=== PATIENT | male | born 1955 | race Caucasian/White ===

== ENCOUNTER 2017-01-31 20:52 | Emergency (ER) | payer OTHER ==
[~2017-01-31] VITALS: Ht 172.7 cm; Wt 99.3 kg
[~2017-01-31 20:52] MED LIST: BIOF500T PO; CLAR500T34 PO; COEN30CA3 PO; DICL-201 PO; INOS500T PO; LISI40TA PO; LORA-741 PO; MAGN1TAB21 PO; MELA1TAB3 PO; MELO15TA3 PO; METF-384 PO; METO-596 PO; OMEGCAP2 PO; PROM12.56 PO; [UNRECOGNIZED DRUG - CODE] PO; [UNRECOGNIZED DRUG - CODE] PO; [UNRECOGNIZED DRUG - OTHER] NAE; [UNRECOGNIZED DRUG - OTHER] PO; [UNRECOGNIZED DRUG - OTHER] PO; [UNRECOGNIZED DRUG - OTHER] PO
[2017-01-31 20:56] VITALS: TEMP 36.6; Ht 172.7 cm; Wt 99.3 kg
[2017-01-31] MEDS ORDERED: OPTIRAY 320 IV PRN (21:45)
[2017-01-31] MEDS ORDERED: CMP5 PO (21:46)
[2017-01-31] MEDS ORDERED: [UNRECOGNIZED DRUG - CODE] PO (21:46)
[2017-01-31] MEDS ORDERED: SULF800T23 PO (21:46)
[2017-01-31] MEDS ORDERED: GLCSR/500 PO (21:46)
[2017-01-31] MEDS ORDERED: OMEG10007 PO ×2 (21:46)
[2017-01-31] MEDS ORDERED: ASPI81TA28 PO (21:46)
[2017-01-31] MEDS ORDERED: PROM12.57 PO (21:46)
[2017-01-31] MEDS ORDERED: NIAC500T11 PO (21:46)
[2017-01-31] MEDS ORDERED: CYAN500T13 PO (21:46)
[2017-01-31] MEDS ORDERED: LISI40TA PO (21:46)
[2017-01-31] MEDS ORDERED: TRC145 PO (21:46)
[2017-01-31 22:15] LABS: ISTAT CREATININE 1.4 mg/dl (0.6-1.3); ISTAT HEMOGLOBIN 14.6 g/dl (14.0-18.0); ISTAT IONIZED CALCIUM 1.28 mmol/l (1.12-1.32)
--- NOTE | 2017-01-31 22:28 | DIAGNOSTIC IMAGING REPORT ---
CT OF THE CHEST WITH IV CONTRAST CLINICAL HISTORY: Thoracic pain status post trauma COMPARISON STUDY: No previous studies for comparison. TECHNIQUE: Following the IV administration of 116 mL of Optiray-320, CT of the thorax was performed from the thoracic inlet to the lung bases. Images are reviewed in the axial, sagittal, and coronal planes. IV contrast was administered without complication. CT DOSE: FINDINGS: Thyroid: Imaged portions of the thyroid gland are normal in appearance. Thoracic aorta: The thoracic aorta is normal in course and caliber, noting standard 3-vessel arch anatomy. No aneurysm or dissection is seen. Pulmonary vasculature: The pulmonary trunk is normal in caliber. There are no central filling defects identified to suggest pulmonary embolus. Note that this examination was not protocoled for the evaluation of pulmonary emboli. HEART: The heart is normal in size and configuration, without pericardial effusion. Lungs and pleural spaces: No pneumothorax is visualized. There is no evidence of pulmonary contusion. No pleural effusions are visualized. There is no focal pulmonary consolidation. Mediastinum: There is no evidence of pathologic adenopathy. No mediastinal hematoma is visualized. Shabana: There is no evidence of pathologic adenopathy Axilla: Clear. Upper abdomen: There is hepatic steatosis. There is cholelithiasis. Skeletal structures: There are no lytic or blastic osseous lesions. No fractures are visualized. IMPRESSION: 1. No evidence of acute intrathoracic injury. 2. Hepatic steatosis 3. Cholelithiasis Electronically signed by: Tony Jurado M.D. 01/31/2017 10:27 PM Dictated Date/Time: 01/31/2017 10:23 PM
--- NOTE | 2017-01-31 22:29 | DIAGNOSTIC IMAGING REPORT ---
CT THORACIC SPINE WITHOUT CT DOSE: 883.21 mGy.cm CLINICAL HISTORY: Thoracic spine pain status post trauma TECHNIQUE: Helical images were acquired in transverse plane. Coronal and sagittal reformatted images were acquired. COMPARISON STUDY: None. FINDINGS: No acute fractures or traumatic subluxations are visualized. There are mild multilevel degenerative changes. No paraspinal hematoma is visualized. There are no pleural effusions. There is no evidence of focal pulmonary consolidation. IMPRESSION: No fractures or subluxations identified. Electronically signed by: Tony Jurado M.D. 01/31/2017 10:28 PM Dictated Date/Time: 01/31/2017 10:27 PM
--- NOTE | 2017-01-31 22:41 | EMERGENCY ROOM VISIT NOTE ---
History First contact with patient: 21:25 Chief Complaint: RIB PAIN Stated Complaint: FELL- RT SIDE RIB PAIN History of Present Illness The patient is a 61 year old male who presents to the Emergency Room via private vehicle accompanied by with complaints of "fell, right side rib pain". The patient states that earlier today, he was disassembling a trailer for scrap, when he fell through the floor, and then off the side of the trailer. This occurred around 4 PM. He states as he was walking his right leg fell through the floor causing him to fall to the right off the side of the trailer striking the ground. He fell approximately 3 feet plus to hydrate his body. He developed a headache at the time, and notes pain in the right side of his ribs between his shoulder blades of his back as well. His tetanus is up-to- date. He denies any chest pain, shortness of breath, abdominal pain, loss of consciousness, striking his head. Review of Systems A complete 6-point Review of Systems was discussed with the patient, with pertinent positives and negatives listed in the History of Present Illness. All remaining Review of Systems questions can be considered negative unless otherwise specified. Past Medical/Surgical History Diabetes, high blood pressure, pneumonia, kidney stones, colonoscopy, Lyme disease Family History Diabetes, cancer, gallbladder disease, kidney disease or stones, seizures Social History Smoking Status: Never Smoker Social History: Patient lives at home with . Current/Historical Medications Scheduled Aspirin (Aspirin Ec), 81 MG PO QPM Bioflavonoid Products (Kathy-C), 1,000 MG PO BID Coenzyme Q10 (Ubidecarenone) (Co Q10), 1 CAP PO QAM Cyanocobalamin (Vitamin B12 500MCG), 500 MCG PO DAILY Fenofibrate (Fenofibrate), 145 MG PO DAILY Fish Oil ([place]-3), 1 CAP PO AMPM Lisinopril (Zestril), 40 MG PO DAILY Melatonin-Pyridoxine (Melatonin), 10 MG PO HS Metformin HCl (Metformin HCl ER), 1,000 MG PO BID Metoprolol Tartrate (Lopressor), 100 MG PO DAILY Niacin (Niacin), 500 MG PO AMPM Para-Aminobenzoic Acid (Paba) (Paba), 100 MG PO BID Policosanol (Policosanol), 10 MG PO BID Prochlorperazine Maleate (Prochlorperazine Maleate), 5 MG PO BID Promethazine (Phenergan ), 12.5 MG PO BID Sulfa/Trimethoprim (Bactrim Ds 800MG/160MG), 1 TAB PO BID Scheduled PRN Lorazepam (Ativan), 0.5 MG PO TID PRN for Anxiety Oxycodone Ir (Roxicodone Ir), 1-2 TAB PO Q4H PRN for Pain Allergies Coded Allergies: Amoxicillin (Unverified Allergy, Intermediate, DIFFICULTY BREATHING, ) Minocycline (Verified Allergy, Unknown, BLACKENED SKIN, 04/22/14) Penicillins (Verified Allergy, Unknown, Unknown, 01/31/17) Testosterone (Verified Adverse Reaction, Unknown, MUSCLE ACHES,GI UPSET, ) Physical Exam Vital Signs Date Time Temp Pulse Resp B/P (MAP) Pulse Ox O2 Delivery O2 Flow Rate FiO2 01/31/17 23:01 69 18 154/87 96 01/31/17 20:56 36.6 74 16 158/96 97 Room Air Physical Exam VITAL SIGNS - Vital signs and nursing notes were reviewed. Patient is afebrile , hypertensive 158/96, non-tachycardic and saturating well on room air 97%. GENERAL -61-year-old male appearing his stated age. Communicates well with provider and answers questions appropriately. SKIN - Gross examination of the entire body surface demonstrates no lacerations to the body surface. HEAD - Normocephalic, Atraumatic. No Hartley's Sign or Raccoon's Eyes. No depressed skull fractures palpable. EYES - PERRL with EOMI bilaterally. Without subconjunctival hemorrhage. Palpebral conjunctiva pink and moist with no injection. EARS - No deformities of external structures noted on gross examination bilaterally. No hemotympanum present. No tympanic perforation noted. Handle of malleus, umbo, cone of light, pars tensa/flaccid all easily visualized. NOSE - Midline and without cyanosis. No epistaxis or clear watery discharge noted. Septum midline without deviation. No septal hematoma noted. No overlying ecchymosis noted. MOUTH/OROPHARYNX - Without perioral cyanosis. Tongue midline with equal elevation of palate bilaterally. No blood noted in the oropharynx. No tonsillar hypertrophy, erythema, or exudates noted. No dental fractures noted. NECK - no tenderness to palpation over the cervical spinous processes. Bowel cervical paraspinal muscle tenderness noted. LUNGS - Chest wall symmetric without accessory muscle use, intercostals retractions, or central cyanosis. No flail chest or depressed fractures noted. No paradoxical chest wall movements noted. No tenderness to palpation across the anterior and posterior chest gonsales. Male tenderness with deep inspiration noted against the examiner's applied pressure to the lateral chest gonsales. Normal vesicular breath sounds CTA B/L. No wheezes, rales, or rhonchi appreciated. There is slight tenderness noted to outpatient overlying the right rib cage region laterally. CARDIAC - RRR with S1/S2. No murmur, rubs, or gallops appreciated. ABDOMEN - Abdominal contour and without pulsations or visible masses. BS normoactive all four quadrants. No rebound tenderness or guarding noted. Negative Runnells's or Glasgow Torres's Signs. No tenderness, palpable masses, hepatosplenomegaly, or ascites noted. EXTREMITIES - No gross deformities noted of the extremities. No tenderness to palpation of the extremities. +5/5 strength noted in UE/LE bilaterally. NEUROLOGIC - Cranial nerves II through XII grossly intact. Sensory intact to light touch throughout. PSYCH -Pt is very pleasant and interacts well with examiner. Medical Decision & Procedures ER Provider Diagnostic Interpretation: CT OF THE CHEST WITH IV CONTRAST CLINICAL HISTORY: Thoracic pain status post trauma COMPARISON STUDY: No previous studies for comparison. TECHNIQUE: Following the IV administration of 116 mL of Optiray-320, CT of the thorax was performed from the thoracic inlet to the lung bases. Images are reviewed in the axial, sagittal, and coronal planes. IV contrast was administered without complication. CT DOSE: FINDINGS: Thyroid: Imaged portions of the thyroid gland are normal in appearance. Thoracic aorta: The thoracic aorta is normal in course and caliber, noting standard 3-vessel arch anatomy. No aneurysm or dissection is seen. Pulmonary vasculature: The pulmonary trunk is normal in caliber. There are no central filling defects identified to suggest pulmonary embolus. Note that this examination was not protocoled for the evaluation of pulmonary emboli. HEART: The heart is normal in size and configuration, without pericardial effusion. Lungs and pleural spaces: No pneumothorax is visualized. There is no evidence of pulmonary contusion. No pleural effusions are visualized. There is no focal pulmonary consolidation. Mediastinum: There is no evidence of pathologic adenopathy. No mediastinal hematoma is visualized. Shabana: There is no evidence of pathologic adenopathy Axilla: Clear. Upper abdomen: There is hepatic steatosis. There is cholelithiasis. Skeletal structures: There are no lytic or blastic osseous lesions. No fractures are visualized. IMPRESSION: 1. No evidence of acute intrathoracic injury. 2. Hepatic steatosis 3. Cholelithiasis Electronically signed by: Tony Jurado M.D. 01/31/2017 10:27 PM Dictated Date/Time: 01/31/2017 10:[address] THORACIC SPINE WITHOUT CT DOSE: 883.21 mGy.cm CLINICAL HISTORY: Thoracic spine pain status post trauma TECHNIQUE: Helical images were acquired in transverse plane. Coronal and sagittal reformatted images were acquired. COMPARISON STUDY: None. FINDINGS: No acute fractures or traumatic subluxations are visualized. There are mild multilevel degenerative changes. No paraspinal hematoma is visualized. There are no pleural effusions. There is no evidence of focal pulmonary consolidation. IMPRESSION: No fractures or subluxations identified. Electronically signed by: Tony Jurado M.D. 01/31/2017 10:28 PM Dictated Date/Time: 01/31/2017 10:27 PM Laboratory Results Test 01/31/17 21:58 Bedside Hemoglobin 14.6 g/dl (14.0-18.0) Bedside Hematocrit 43 % (42-52) Bedside Sodium 140 mEq/L (135-144) Bedside Potassium 4.6 mEq/L (3.3-5.0) Bedside Chloride 106 mEq/L (101-112) Bedside Total CO2 23 mEq/l (24-31) Anion Gap 15.0 mmol/L (16-25) Bedside Blood Urea Nitrogen 25 mg/dl (7-18) Bedside Creatinine 1.4 mg/dl (0.6-1.3) Bedside Glucose (other) 202 mg/dl (70-99) Bedside Ionized Calcium (Sandra) 1.28 mmol/l (1.12-1.32) Medications Administered Medications (Trade) Dose Ordered Sig/Kavon Route Start Time Stop Time Status Last Admin Dose Admin Oxycodone HCl (Roxicodone Immediate Rel 5MG Home Pack) 1 homepack UD STAT PO 01/31/17 22:50 01/31/17 22:52 DC 01/31/17 22:57 1 HOMEPACK Medical Decision Patient was seen and evaluated as above. After obtaining a thorough history and physical examination IV access was initiated an i-STAT was ordered as well as the above imaging. CT scan of the chest was obtained after discussing benefits versus risks. There is concern secondary to mechanism of injury of acute intrathoracic injury. Results as above. No acute intrathoracic injury. Patient's i-STAT does reveal a hemoglobin of 14.6, however there is a BUN of 25 , creatinine of 1.4, and glucose of 202. patient is a follow-up regarding this elevated creatinine. I did call the CT scanner employees to verify he could have the CT scan of the chest with this creatinine. They stated that it would be okay. Patient this time appears stable for discharge. He was also evaluated by the attending. He was educated upon the importance of follow-up. He was educated upon worrisome symptoms which to return, had questions answered prior to discharge, and was discharged home in good condition. For his rib pain a short-term pain prescription will be provided. In evaluation treatment this patient the following differential diagnoses were entertained: Acute intrathoracic injury, fracture, among others. [place] Drug Monitoring Program Search Results: patient reviewed within database, no issues identified Impression Primary Impression: Fall Departure Information Dispostion Home / Self-Care Condition GOOD Prescriptions Oxycodone Ir (Roxicodone Ir) 5 Mg Tab 1-2 TAB PO Q4H Y for Pain, #15 TAB For Initial Treatment Prov: Je Martin PA-C 01/31/17 Referrals Sonal Joseph PA-C (PCP) Patient Instructions My [facility] Additional Instructions You have been treated in the Emergency Department for Back Pain and side pain following a fall. For pain control, you can use the following nwwl-zhu-ghlswqy medicines (if >12 yo): - Regular strength (325mg/tab) Tylenol (acetaminophen) 2 tabs every 4-6 hours as needed. Do not exceed 12 tablets in a 24 hour period. Avoid taking more than 3 grams (3000 mg) of Tylenol per day. This includes any other sources of acetaminophen you may take on a regular basis. - Regular strength (200 mg/tab) Advil (ibuprofen) 1-2 tabs every 4-6 hours as needed. Do not exceed a dose of 3200 mg per day. If this is an acute injury, ice can be applied to the area of pain for the first 3 days to help decrease pain and inflammation. After the first 3 days, a heating pad can be used over the area for continued soothing relief. You should schedule a follow-up appointment in 2-3 days with your Primary Care Provider for further evaluation and treatment of your back pain. Please call your family doctor to schedule follow up to identify your kidney function. It was found to be abnormal here today. Please also follow-up regarding today's CAT scan findings to include but not limited to the hepatic steatosis and cholelithiasis. You're blood sugar was also found to be elevated. Return to the Emergency Department if your current symptoms worsen despite treatment course outlined above, or if you develop any of the following symptoms : intractable pain despite aforementioned treatment course, loss of control of your bowel or bladder, numbness or tingling in your groin, or development of a fever. Please return to the emergency department with any new/concerning symptoms.
[2017-01-31] MEDS ORDERED: OXYCODONE IR HOME PACK PO STA (22:50)
[2017-01-31] MEDS ORDERED: OXYC1TAB3 PO (22:52)
--- NOTE | 2017-01-31 22:56 | EMERGENCY ROOM VISIT NOTE ---
ED Visit Note First contact with patient: 21:25 This Patient was discussed with the physician [employer], Je Martin PA-C. The pertinent historical and physical exam findings were confirmed. I agree with the studies ordered and with the interpretations of these studies. I agree with the disposition and care plan.
[2017-01-31 23:01] VITALS: BP 154/87; PULSE 69; O2SAT 96
== END 2017-01-31 23:03 | disposition home or self-care (01) ==
LOC: C.EDB 20:54 → C.EDD 23:03
DX: T14.90 Injury, unspecified (principal); R07.82 Intercostal pain; W17.89XA Other fall from one level to another, initial encounter; K80.20 Calculus of gallbladder without cholecystitis without obstruction; K76.0 Fatty (change of) liver, not elsewhere classified; E11.9 Type 2 diabetes mellitus without complications; Z79.899 Other long term (current) drug therapy

== ENCOUNTER 2020-08-11 16:02 | Inpatient (IN) ==
--- OUTSIDE RECORDS SUMMARY | 2020-08-11 16:05 | External Medical Summary | Continuity of Care Document ---
:1955 Author Name Jorje Mckay, Provider Address Unavailable Unavailable , Care Team Providers Name Role Phone Corina Markham Unavailable [email or web address] M.[email or web address]. 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 Refills: 0 Metoprolol Tartrate 100 MG Oral Tablet; TAKE 1 TABLET DAILY. Refills: 0 Promethazine HCl - 12.5 MG Oral Tablet; TAKE ONE HALF TABLET TWICE DAILY. Refills: 0 Fish Oil 1200 MG Oral Capsule; Take 1 capsule twice daily Refills: 0 Policosanol 10 MG Oral Capsule; TAKE 2 TABLETS IN THE MORNIN G DAILY. Refills: 0 Melatonin 10-10 MG Oral Tablet Extended Release; TAKE 1 TABLET Daily in the evening as needed for sleep. Refills: 0 Inositol 500 MG TABS; TAKE 1 TABLET DAILY DIRECTED. Refills: 0 Lisinopril 40 MG Oral Tablet; TAKE 1 TABLET DAILY DIRECTE D. Refills: 0 LORazepam 0.5 MG Oral Tablet; TAKE 1-2 TABLETs 3 TIMES DAILY NEEDED. Refills: 0 Kathy-C 1000-50 MG TABS; TAKE 1 TABLET DAILY DIRECTED. Refills: 0 Co-Enzyme Q-10 30 MG Oral Capsule; TAKE 1 CAPSULE TWICE EDINSON Y. Refills: 0 Lancets MISC; Use to test blood sugar 3-4 times Daily. Refills: 0 Atorvastatin Calcium 20 MG Oral Tablet; TAKE 1 TABLET DAILY AT BEDTIME. Woody Juarez Start: 18-Jun-2015 Quantity: 30 Refills: 11 OneTouch Ultra Blue STRP; Test 4 times daily Refills: 0 PABA 100 MG Oral Tablet; TAKE 2 TABLETS DAILY. Refills: 0 Magnesium Citrate TABS; TDD:225 mg Refills: 0 metFORMIN HCl ER 500 MG Oral Tablet Exte nded Release 24 Hour; take 2 tablets by mouth twice a day MARYURI Bailey Start: 15-May-2014 Quantity: 360 Refills: 3 Fenofibrate 145 MG Oral Tablet; take 1 tablet by mouth once daily Woody Juarez Start: 21-Aug-2014 Quantity: 90 Refills: 3 BD Pen Needle Rosemary U/F 32G X 4 MM; one per day Niyah Juarez Start: 22-Feb-2015 Quantity: 1 100 Miscellaneous Abelardo x Refills: 3 Aspirin 81 MG TABS; TAKE 1 TABLET DAILY. Woody Juarez Start: 20-Feb-2014 Quantity: 30 Refills: 0 Vitamin B-12 500 MCG Oral Tablet; TAKE 1 TABLET DAILY. Woody Lee cht Start: 12-Feb-2014 Quantity: 90 Refills: 3 Cialis 20 MG Oral Tablet; One tablet as directed Gisella Juarez Start: 14-Jan-2015 Quantity: 3 Refills: 0 Procedures Procedures not documented Immunizations Pneumococcal polysaccharide vaccine, 23 valent On: 2007 Influenza Comments:Declined Influenza Comments:declined Influenza Comments:given 05/27 Family History Mother Family history of diabetes mellitus (V18.0) (Z83.3) Status: Active Social History - Smoking Status Never smoked tobacco Plan of Treatment Planned Observations Planned Goals not documented Results No Known Results Results not documented
--- OUTSIDE RECORDS SUMMARY | 2020-08-11 16:06 | External Medical Summary | Continuity of Care Document ---
:1955 Author Name Jorje Mckay, Provider Address Unavailable Unavailable , Care Team Providers Name Role Phone Corina Markham Unavailable [email or web address]. 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 Refills: 0 Metoprolol Tartrate 100 MG Oral Tablet; TAKE 1 TABLET DAILY. Refills: 0 Magnesium Citrate TABS; TDD:225 mg Refills: 0 Promethazine HCl - 12.5 MG [...] TAKE 1 TABLET DAILY DIRECTED. Refills: 0 PABA 100 MG Oral Tablet; TAKE 2 TABLETS DAILY. Refills: 0 OneTouch Ultra Blue STRP; Test 4 times daily Refills: 0 Lisinopril 40 MG Oral Tablet; [...] blood sugar 3-4 times Daily. Refills: 0 Vitamin B-12 500 MCG Oral Tablet; TAKE 1 TABLET DAILY. Woody Lee cht Start: 12-Feb-2014 Quantity: 90 Refills: 3 Aspirin 81 MG TABS; TAKE 1 TABLET DAILY. Woody Juarez Start: 20-Feb-2014 Quantity: 30 Refills: 0 metFORMIN HCl ER 500 MG Oral Tablet Exte nded Release 24 Hour; take 2 tablets by mouth twice a day MARYURI Bailey Start: 15-May-2014 Quantity: 360 Refills: 3 Fenofibrate 145 MG Oral Tablet; take 1 tablet by mouth once daily Woody Juarez Start: 21-Aug-2014 Quantity: 90 Refills: 3 Cialis 20 MG Oral Tablet; One tablet as directed Gisella Juarez Start: 14-Jan-2015 Quantity: 3 Refills: 0 BD Pen Needle Rosemary U/F 32G X 4 MM; one per day Niyah Juarez Start: 22-Feb-2015 Quantity: 1 100 Miscellaneous Abelardo x Refills: 3 Atorvastatin Calcium 20 MG Oral Tablet; TAKE 1 TABLET DAILY AT BEDTIME. Woody Juarez SLennox Start: 18-Jun-2015 Quantity: 30 Refills: 11 Procedures Procedures not documented Immunizations Pneumococcal polysaccharide vaccine, 23 valent On: 2007 Influenza Comments:Declined Influenza Comments:declined Influenza Comments:given 05/27 Family History Mother Family history of diabetes mellitus (V18.0) (Z83.3) Status: Active Social History - Smoking Status Never smoked tobacco Plan of Treatment Planned Observations Planned Goals not documented Results No Known Results Results not documented
--- NOTE | 2020-08-11 16:27 | Emergency Department Note ---
History of Present Illness General Chief complaint: Hyperglycemia Stated complaint: HIGH SUGAR, INFECTION SOMEWHERE Time Seen by Provider: 08/11/20 16:13 Source: patient Mode of arrival: ambulatory Limitations: no limitations History of Present Illness Provider complaint: Weakness, low blood pressure This is a 64-year-old male who presents to the ED from the PCPs office. They did contact us to let him know that the patient was coming. The patient went there and was found to have a low blood pressure and tachycardia. The patient reports that he had a Whipple procedure performed for pancreatic cancer on Decem sneha 2. He states that his sugars have been running in the 3-400 range since discharge. He states that he has been feeling tired and weak. He states that he urinates about every 1/2 hour. He feels thirsty all the time. He states that they do have him on insulin. He reports a normal appetite. Denies any nausea, vomiting, diarrhea or abdominal pains. No fevers. No respiratory symptoms. Home Medications Medication Instructions Recorded Confirmed Type COENZYME Q10 (UBIDECARENONE) (CO 1 cap PO QAM #0 cap 04/22/14 History Q10) LORAZEPAM (ATIVAN) 0.5 mg PO TID PRN #0 tab 04/22/14 History MELATONIN-PYRIDOXINE (MELATONIN) 10 mg PO HS #0 04/22/14 History METOPROLOL TARTRATE (LOPRESSOR) 100 mg PO QAM #0 tab 04/22/14 History PARA-AMINOBENZOIC ACID (PABA) 100 mg PO QAM #0 04/22/14 History (PABA) ASPIRIN (ASPIRIN EC) 81 mg PO QPM #0 01/31/17 History Fish Oil ([place]-3) 1 cap PO QAM #0 cap 01/31/17 History Lisinopril (Zestril) 40 mg PO QAM #0 tab 01/31/17 History Metformin HCl (Metformin HCl ER) 1,000 mg PO BID #120 01/31/17 History POLICOSANOL 10 mg PO BID #0 01/31/17 History Sulfa/Trimethoprim (Bactrim Ds 1 tab PO BID #6 tab 01/31/17 History 800MG/160MG) Ascorbic Acid (Vitamin C) 1 tab PO BID #0 10/17/17 History Fenofibrate (Tricor) 160 mg PO QAM #0 tab 10/17/17 History OXYCODONE/ACETAMINOPHEN 5MG/325MG 1 tab PO Q4H PRN #18 tab 10/22/17 Rx (PERCOCET 5MG/325MG) PSEUDOEPHEDRINE-GUAIFENESIN 1 tab PO BID 10 Days #20 tab 10/22/17 History (MUCINEX D) Allergies Allergy/AdvReac Type Severity Reaction Status Date / Time amoxicillin Allergy Intermediate DIFFICULTY Verified 10/22/17 06:41 BREATHING minocycline Allergy Unknown BLACKENED Verified 10/22/17 05:35 SKIN Penicillins Allergy Unknown FEVER AND Verified 10/22/17 05:35 RASH testosterone AdvReac Unknown MUSCLE Verified 10/22/17 05:35 ACHES,GI UPSET Past Med/Surg History Social History Smoking Status: Never smoker Preferred Language: Dutch Feels Safe at Home: Yes Review of Systems A total of 10 systems reviewed and were otherwise negative Physical Exam Vital Signs Vital Signs - 24 hr 08/11/20 16:05 08/11/20 16:17 08/11/20 16:30 Temperature 36.0 C L Temperature Source Temporal Artery Scan Pulse Rate - Lying Pulse Rate - Standing Pulse Rate 95 H 98 H Pulse Rate from SpO2 Sensor Respiratory Rate 18 18 Respiratory Effort / Characteristics Non-Labored Spontaneous Respiratory Depth Normal Blood Pressure - Lying Blood Pressure- Standing Blood Pressure 81/57 L 124/73 Blood Pressure Mean 65 82 Blood Pressure Position Sitting Pulse Oximetry 100 97 Oxygen Delivery Method Room Air Room Air Sepsis Recent Fever Within 48 Hours No Sepsis New/Unexplained Change in Mental Status No Sepsis Action Taken by Nursing No Action Required 08/11/20 16:34 08/11/20 16:47 08/11/20 17:00 Temperature Temperature Source Pulse Rate - Lying 82 Pulse Rate - Standing 110 H Pulse Rate 98 H 92 H Pulse Rate from SpO2 Sensor 92 H Respiratory Rate 20 16 Respiratory Effort / Characteristics Respiratory Depth Blood Pressure - Lying 126/74 Blood Pressure- Standing 86/64 L Blood Pressure 129/76 Blood Pressure Mean 96 Blood Pressure Position Pulse Oximetry 98 Oxygen Delivery Method Sepsis Recent Fever Within 48 Hours Sepsis New/Unexplained Change in Mental Status Sepsis Action Taken by Nursing 08/11/20 17:30 08/11/20 18:10 08/11/20 18:30 Temperature Temperature Source Pulse Rate - Lying Pulse Rate - Standing Pulse Rate 97 H 92 H 88 Pulse Rate from SpO2 Sensor 98 H 93 H 88 Respiratory Rate 14 18 23 Respiratory Effort / Characteristics Respiratory Depth Blood Pressure - Lying Blood Pressure- Standing Blood Pressure 137/80 123/76 149/87 H Blood Pressure Mean 107 92 126 Blood Pressure Position Pulse Oximetry 99 98 99 Oxygen Delivery Method Sepsis Recent Fever Within 48 Hours Sepsis New/Unexplained Change in Mental Status Sepsis Action Taken by Nursing 08/11/20 19:12 08/11/20 19:13 08/11/20 19:30 Temperature Temperature Source Pulse Rate - Lying Pulse Rate - Standing Pulse Rate 89 86 Pulse Rate from SpO2 Sensor 88 86 89 Respiratory Rate 23 15 Respiratory Effort / Characteristics Respiratory Depth Blood Pressure - Lying Blood Pressure- Standing Blood Pressure 142/83 H 148/78 H Blood Pressure Mean 116 104 Blood Pressure Position Pulse Oximetry 98 97 98 Oxygen Delivery Method Sepsis Recent Fever Within 48 Hours Sepsis New/Unexplained Change in Mental Status Sepsis Action Taken by Nursing CONSTITUTIONAL/VITAL SIGNS: Reviewed / noted above. GENERAL: Non-toxic in appearance. INTEGUMENTARY: Warm, dry, and [place]. HEAD: Normocephalic. EYES: without scleral icterus or trauma. ENT/OROPHARYNX: clear and dry. LYMPHADENOPATHY/NECK: Is supple without lymphadenopathy or meningismus. RESPIRATORY: Lungs clear and equal. CARDIOVASCULAR: Regular rate and rhythm. GI/ABDOMEN: Soft and nontender. No organomegaly or pulsatile mass. No rebound or guarding. Normal bowel sounds. Surgical wound is healing well. No evidence of infection. EXTREMITIES: Warm and well perfused. BACK: No CVA tenderness. NEUROLOGICAL: Intact without focal deficits. PSYCHIATRIC: normal affect. MUSCULOSKELETAL: Normally developed with good muscle tone. TRIAGE NURSING DOCUMENTATION REVIEWED. Course Administered Medications Discontinued Medications Sodium Chloride (Nss 1000ml) 2,000 mls @ 999 mls/hr IV .Q2H1M DEIDRA Stop: 08/11/20 18:30 Last Admin: 08/11/20 16:56 Dose: 999 mls/hr Documented by: [id number] Cefepime HCl (Maxipime) 2,000 mg in 20 mls @ 5 mls/min IV NOW STA; Protocol Stop: 08/11/20 18:06 Last Admin: 08/11/20 18:38 Dose: 5 mls/min Documented by: [id number] Ioversol (Ioversol 100ml) 90 ml IV ONCE ONE Stop: 08/11/20 19:04 Last Admin: 08/11/20 19:03 Dose: 90 ml Documented by: [id number] Medical Decision Making Differential Diagnosis Differential includes acute coronary syndrome, myocardial infarction, CVA, TIA, anemia, infection, pneumonia, UTI, pyelonephritis, poor nutrition, dehydration, electrolyte disturbance,hypoglycemia. Medical Records Attestation: I reviewed the patient's medical records. Home Medications Current Medication List: was personally reviewed by me Laboratory Data Attestation: I reviewed the patient's lab results. Result diagrams: 08/11/20 16:25 08/11/20 16:25 Lab Results 08/11/20 08/11/20 08/11/20 Range/Units 16:25 16:25 16:25 WBC 16.17 H (4.8-10.8) K/uL RBC 4.91 (4.7-6.1) M/uL Hgb 13.0 L (14.0-18.0) g/dL Hct 40.4 L (42-52) % MCV 82.3 (80-100) fL MCH 26.5 (25-34) pg MCHC 32.2 (32-36) g/dL RDW Std Deviation 42.2 (36.4-46.3) fL RDW Coeff of Gregorio 14.0 (11.5-14.5) % Plt Count 423 H (130-400) K/uL MPV 10.4 (7.4-10.4) fL Immature Gran % (Auto) 0.4 % Neut % (Auto) 81.2 % Lymph % (Auto) 8.5 % [place] % (Auto) 9.5 % Eos % (Auto) 0.3 % Baso % (Auto) 0.1 % Neut # (Auto) 13.13 H (1.4-6.5) K/uL Lymph # (Auto) 1.38 (1.2-3.4) K/uL [place] # (Auto) 1.54 H (0.11-0.59) K/uL Eos # (Auto) 0.05 (0-0.5) K/uL Baso # (Auto) 0.01 (0-0.2) K/uL Immature Gran # (Auto) 0.06 H (0.00-0.02) K/uL PT 12.5 H (9.0-12.0) Seconds INR 1.2 H (0.9-1.1) VBG pH (7.36-7.41) VBG pCO2 (38-50) mmHg VBG pO2 mmHg VBG HCO3 mmol/L VBG O2 Saturation % VBG Base Excess mEq/L Barometric Pressure mm/Hg Sodium 132 L (136-145) mmol/L Potassium 3.5 (3.5-5.1) mmol/L Chloride 93 L (98-107) mmol/L Carbon Dioxide 30 (21-32) mmol/L Anion Gap 9.0 (3-11) BUN 25 H (7-18) mg/dl Creatinine 1.12 (0.6-1.4) mg/dl Est Cr Clr Drug Dosing 64.5 ml/min Est GFR ( Amer) 80.0 Est GFR (Non-Af Amer) 69.0 BUN/Creatinine Ratio 22.1 H (10-20) Glucose 326 H* (70-99) mg/dl Lactate (0.4-2.0) mmol/L Calcium 15.3 H* (8.5-10.1) mg/dl Magnesium 1.8 (1.8-2.4) mg/dl Total Bilirubin 0.4 (0.2-1) mg/dl AST 32 (15-37) U/L ALT 36 (12-78) U/L Alkaline Phosphatase 102 (45-117) U/L Total Creatine Kinase 46 (39-308) U/L Troponin I < 0.015 (0-0.045) ng/ml Total Protein 7.7 (6.4-8.2) gm/dl Albumin 3.3 L (3.4-5.0) gm/dl Globulin 4.4 H (2.5-4.0) gm/dl Albumin/Globulin Ratio 0.7 L (0.9-2) Beta-Hydroxybutyric Acd (0.2-2.81) mg/dl Urine Color Urine Appearance (Clear) Urine pH (4.5-7.5) Ur Specific [place] (1.000-1.030) Urine Protein (Negative) Urine Glucose (UA) (Negative) Urine Ketones (Negative) Urine Blood (Negative) Urine Nitrite (Negative) Urine Bilirubin (Negative) Urine Urobilinogen (Negative) Ur Leukocyte Esterase (Negative) Urine WBC (Auto) (0-5) /hpf Urine RBC (Auto) (0-4) /hpf U Hyaline Cast (Auto) (0-5) /lpf U Epithel Cells (Auto) (0-5) /lpf Urine Bacteria (Auto) (Negative) COVID-19 Eval Order SARS-CoV-2, RNA, NAAT (NEGATIVE) 08/11/20 08/11/20 08/11/20 Range/Units 16:49 16:49 18:10 WBC (4.8-10.8) K/uL RBC (4.7-6.1) M/uL Hgb (14.0-18.0) g/dL Hct (42-52) % MCV (80-100) fL MCH (25-34) pg MCHC (32-36) g/dL RDW Std Deviation (36.4-46.3) fL RDW Coeff of Gregorio (11.5-14.5) % Plt Count (130-400) K/uL MPV (7.4-10.4) fL Immature Gran % (Auto) % Neut % (Auto) % Lymph % (Auto) % [place] % (Auto) % Eos % (Auto) % Baso % (Auto) % Neut # (Auto) (1.4-6.5) K/uL Lymph # (Auto) (1.2-3.4) K/uL [place] # (Auto) (0.11-0.59) K/uL Eos # (Auto) (0-0.5) K/uL Baso # (Auto) (0-0.2) K/uL Immature Gran # (Auto) (0.00-0.02) K/uL PT (9.0-12.0) Seconds INR (0.9-1.1) VBG pH 7.41 (7.36-7.41) VBG pCO2 46 (38-50) mmHg VBG pO2 28 mmHg VBG HCO3 29 mmol/L VBG O2 Saturation < 60.0 % VBG Base Excess 3.4 mEq/L Barometric Pressure 735.5 mm/Hg Sodium (136-145) mmol/L Potassium (3.5-5.1) mmol/L Chloride (98-107) mmol/L Carbon Dioxide (21-32) mmol/L Anion Gap (3-11) BUN (7-18) mg/dl Creatinine (0.6-1.4) mg/dl Est Cr Clr Drug Dosing ml/min Est GFR ( Amer) Est GFR (Non-Af Amer) BUN/Creatinine Ratio (10-20) Glucose (70-99) mg/dl Lactate 5.1 H* (0.4-2.0) mmol/L Calcium (8.5-10.1) mg/dl Magnesium (1.8-2.4) mg/dl Total Bilirubin (0.2-1) mg/dl AST (15-37) U/L ALT (12-78) U/L Alkaline Phosphatase (45-117) U/L Total Creatine Kinase (39-308) U/L Troponin I (0-0.045) ng/ml Total Protein (6.4-8.2) gm/dl Albumin (3.4-5.0) gm/dl Globulin (2.5-4.0) gm/dl Albumin/Globulin Ratio (0.9-2) Beta-Hydroxybutyric Acd (0.2-2.81) mg/dl Urine Color Yellow Urine Appearance Cloudy A (Clear) Urine pH 5.0 (4.5-7.5) Ur Specific [place] 1.019 (1.000-1.030) Urine Protein 1+ H (Negative) Urine Glucose (UA) 3+ H (Negative) Urine Ketones Negative (Negative) Urine Blood 3+ H (Negative) Urine Nitrite Negative (Negative) Urine Bilirubin Negative (Negative) Urine Urobilinogen Negative (Negative) Ur Leukocyte Esterase Trace H (Negative) Urine WBC (Auto) 10-30 H (0-5) /hpf Urine RBC (Auto) >30 H (0-4) /hpf U Hyaline Cast (Auto) 5-10 H (0-5) /lpf U Epithel Cells (Auto) 10-20 H (0-5) /lpf Urine Bacteria (Auto) Negative (Negative) COVID-19 Eval Order SARS-CoV-2, RNA, NAAT (NEGATIVE) 08/11/20 08/11/20 08/11/20 Range/Units 18:24 18:36 18:36 WBC (4.8-10.8) K/uL RBC (4.7-6.1) M/uL Hgb (14.0-18.0) g/dL Hct (42-52) % MCV (80-100) fL MCH (25-34) pg MCHC (32-36) g/dL RDW Std Deviation (36.4-46.3) fL RDW Coeff of Gregorio (11.5-14.5) % Plt Count (130-400) K/uL MPV (7.4-10.4) fL Immature Gran % (Auto) % Neut % (Auto) % Lymph % (Auto) % [place] % (Auto) % Eos % (Auto) % Baso % (Auto) % Neut # (Auto) (1.4-6.5) K/uL Lymph # (Auto) (1.2-3.4) K/uL [place] # (Auto) (0.11-0.59) K/uL Eos # (Auto) (0-0.5) K/uL Baso # (Auto) (0-0.2) K/uL Immature Gran # (Auto) (0.00-0.02) K/uL PT (9.0-12.0) Seconds INR (0.9-1.1) VBG pH (7.36-7.41) VBG pCO2 (38-50) mmHg VBG pO2 mmHg VBG HCO3 mmol/L VBG O2 Saturation % VBG Base Excess mEq/L Barometric Pressure mm/Hg Sodium (136-145) mmol/L Potassium (3.5-5.1) mmol/L Chloride (98-107) mmol/L Carbon Dioxide (21-32) mmol/L Anion Gap (3-11) BUN (7-18) mg/dl Creatinine (0.6-1.4) mg/dl Est Cr Clr Drug Dosing ml/min Est GFR ( Amer) Est GFR (Non-Af Amer) BUN/Creatinine Ratio (10-20) Glucose (70-99) mg/dl Lactate 5.3 H* (0.4-2.0) mmol/L Calcium (8.5-10.1) mg/dl Magnesium (1.8-2.4) mg/dl Total Bilirubin (0.2-1) mg/dl AST (15-37) U/L ALT (12-78) U/L Alkaline Phosphatase (45-117) U/L Total Creatine Kinase (39-308) U/L Troponin I (0-0.045) ng/ml Total Protein (6.4-8.2) gm/dl Albumin (3.4-5.0) gm/dl Globulin (2.5-4.0) gm/dl Albumin/Globulin Ratio (0.9-2) Beta-Hydroxybutyric Acd (0.2-2.81) mg/dl Urine Color Urine Appearance (Clear) Urine pH (4.5-7.5) Ur Specific [place] (1.000-1.030) Urine Protein (Negative) Urine Glucose (UA) (Negative) Urine Ketones (Negative) Urine Blood (Negative) Urine Nitrite (Negative) Urine Bilirubin (Negative) Urine Urobilinogen (Negative) Ur Leukocyte Esterase (Negative) Urine WBC (Auto) (0-5) /hpf Urine RBC (Auto) (0-4) /hpf U Hyaline Cast (Auto) (0-5) /lpf U Epithel Cells (Auto) (0-5) /lpf Urine Bacteria (Auto) (Negative) COVID-19 Eval Order Covid19 IDNow [facility] SARS-CoV-2, RNA, NAAT NEGATIVE (NEGATIVE) Imaging Data Radiologist's Impression: XR chest 1V portable HISTORY: 64 years-old Male weakness acute weakness COMPARISON: Chest CT 01/31/2017 TECHNIQUE: Portable AP view of the chest FINDINGS: Cardiomediastinal and hilar silhouettes are within normal limits. There is no pneumothorax, pleural effusion, airspace consolidation or overt pulmonary edema. Degenerative changes of the spine. IMPRESSION: No acute process. IMPRESSION: 1. Interval postoperative changes of recent Whipple procedure. There is a small phlegmon/developing abscess at the operative bed measuring up to 3.4 cm with adjacent moderate inflammatory stranding of the mesentery. No drainable fluid collection. 2. Trace abdominal pelvic ascites with likely reactive wall thickening of the duodenum. 3. Hepatic metastasis are noted in addition to numerous lymphatic metastasis of the abdomen as above. 4. No bowel obstruction. 5. Nonobstructing bilateral nephrolithiasis. 6. Additional findings as above. ECG Data Attestation: I personally reviewed and interpreted this ECG as follows: Indication: + weakness Rate (beats per minute): 105 Rhythm: + sinus tachycardia ECG Intervals/blocks: + Normal QT-c ECG ST segments: no ST elevation ECG Findings: no PVCs MDM Narrative The patient presents with findings concerning for dehydration likely related to his hyperglycemia and frequent urination. His initial blood pressure was 81/57 with a heart rate of 95. In the room when I evaluated the patient, his blood pressure was in the 120 systolic range with a heart rate of 101. I stood him up and his blood pressure dropped to 80 systolic range and his heart rate increased to 110. His primary symptoms are weakness and fatigue as well as frequent urination up to every 1/2 hour and feeling thirsty as well as hyperglycemia. He is a diabetic. He is on insulin. He recently had a Whipple procedure for pancreatic cancer. The patient's white blood cell count of 16. A VBG was normal. Chemistry panel was unremarkable with the exception of a calcium of 15.3. Glucose is 326. Troponin is negative. Urine suggests some blood and glucose as well as trace leukocyte Estrace. Negative ketones. Chest x-ray did not show acute process. EKG showed a sinus tach without ischemic change. I did speak with Chloe zaldivar about the patient. She requested the patient receive empiric antibiotics. The patient was given IV cefepime. She also requested a CT scan of the abdomen pelvis. This was ordered. The patient will require further inpatient evaluation and care. The patient was given 2 L of normal saline in the ED. the CT scan of the abdomen pelvis did show a small phlegmon in the operative bed measuring 3.4 cm with some adjacent segment moderate inflammatory stranding of the mesentery. There is no drainable fluid collectio n. I did speak to general surgery service who will follow the medicine service with the patient. Impression & Plan Hypercalcemia, Orthostatic hypotension, Weakness, Polyuria, Acute hyperglycemia, Phlegmon of pancreas Discharge Plan Visit Data Chief Complaint: Hyperglycemia Stated Complaint: HIGH SUGAR, INFECTION SOMEWHERE ED Provider: Jose Manuel Jones Discharge Problem: Hypercalcemia, Orthostatic hypotension, Weakness, Polyuria, Acute hyperglycemia, Phlegmon of pancreas Patient Disposition: Being Evaluated by Hospitalist Forms Stand Alone Forms: My [facility] Prescriptions Prescriptions: No Action COENZYME Q10 (UBIDECARENONE) (CO Q10) 30 MG capsule 1 cap PO QAM Qty: 0 RF: 0 LORAZEPAM (ATIVAN) 0.5 MG tablet 0.5 mg PO TID PRN (Reason: Anxiety) Qty: 0 RF: 0 MELATONIN-PYRIDOXINE (MELATONIN) 1 TAB tablet 10 mg PO HS Qty: 0 RF: 0 METOPROLOL TARTRATE (LOPRESSOR) 100 MG tablet 100 mg PO QAM Qty: 0 RF: 0 PARA-AMINOBENZOIC ACID (PABA) (PABA) 100 MG tablet 100 mg PO QAM Qty: 0 RF: 0 ASPIRIN (ASPIRIN EC) 81 MG tablet 81 mg PO QPM Qty: 0 RF: 0 Fish Oil ([place]-3) 1 EA capsule 1 cap PO QAM Qty: 0 RF: 0 Lisinopril (Zestril) 40 MG tablet 40 mg PO QAM Qty: 0 RF: 0 Metformin HCl (Metformin HCl ER) 500 MG [id number] 1,000 mg PO BID Qty: 120 RF: 0 POLICOSANOL 10 MG capsule 10 mg PO BID Qty: 0 RF: 0 Sulfa/Trimethoprim (Bactrim Ds 800MG/160MG) tablet 1 tab PO BID Qty: 6 RF: 0 Ascorbic Acid (Vitamin C) 500 MG tablet 1 tab PO BID Qty: 0 RF: 0 Fenofibrate (Tricor) 160 MG tablet 160 mg PO QAM Qty: 0 RF: 0 PSEUDOEPHEDRINE-GUAIFENESIN (MUCINEX D) 1 TAB tablet 1 tab PO BID 10 Days Qty: 20 RF: 0 OXYCODONE/ACETAMINOPHEN 5MG/325MG (PERCOCET 5MG/325MG) tablet 1 tab PO Q4H PRN (Reason: Pain) Qty: 18 RF: 0 Referrals Referrals: Emily Clarke DO [Primary Care Provider] -
[2020-08-11] MEDS ORDERED: SODIUM CHLORIDE 0.9% 1000ML 2,000 ML IV SCH (16:30)
[2020-08-11 16:37] LABS: Basophils # (auto) 0.01 K/uL (0-0.2); Basophils % (auto) 0.1 %; Eosinophils # (auto) 0.05 K/uL (0-0.5); Eosinophils % (auto) 0.3 %; Hematocrit (blood only) 40.4 % (42-52); Immature Granulocytes # (auto) 0.06 K/uL (0.00-0.02); Immature Granulocytes % (auto) 0.4 %; Lymphocytes # (auto) 1.38 K/uL (1.2-3.4); Lymphocytes % (auto) 8.5 %; Mean Corpuscular Hemoglobin 26.5 pg (25-34); Mean Corpuscular Hgb Conc 32.2 g/dL (32-36); Mean Corpuscular Volume 82.3 fL (80-100); Mean Platelet Volume 10.4 fL (7.4-10.4); Monocytes # (auto) 1.54 K/uL (0.11-0.59); Monocytes % (auto) 9.5 %; Neutrophils # (auto) 13.13 K/uL (1.4-6.5); Neutrophils % (auto) 81.2 %; Platelet Count 423 K/uL (130-400); RDW Standard Deviation 42.2 fL (36.4-46.3); Red Blood Count 4.91 M/uL (4.7-6.1); White Blood Count 16.17 K/uL (4.8-10.8)
[2020-08-11 16:52] LABS: INR 1.2 (0.9-1.1); Prothrombin Time 12.5 Seconds (9.0-12.0)
[2020-08-11 16:58] LABS: Alanine Aminotransferase 36 U/L (12-78); Albumin Level 3.3 gm/dl (3.4-5.0); Aspartate Aminotransferase 32 U/L (15-37); BUN Creatinine Ratio 22.1 (10-20); Blood Urea Nitrogen 25 mg/dl (7-18); Calcium 15.3 mg/dl (8.5-10.1); Carbon Dioxide 30 mmol/L (21-32); Chloride 93 mmol/L (98-107); Creatinine Clr Calc Pharmacy 64.5 ml/min; Glucose 326 mg/dl (70-99); Magnesium 1.8 mg/dl (1.8-2.4); Potassium 3.5 mmol/L (3.5-5.1); Sodium 132 mmol/L (136-145)
[2020-08-11 16:59] LABS: Albumin Globulin Ratio 0.7 (0.9-2); Alkaline Phosphatase 102 U/L (45-117); Bilirubin,Total 0.4 mg/dl (0.2-1); Creatine Kinase 46 U/L (39-308); Globulin 4.4 gm/dl (2.5-4.0); Total Protein 7.7 gm/dl (6.4-8.2); Troponin I < 0.015 ng/ml (0-0.045)
[2020-08-11 17:06] LABS: Base Excess VBG 3.4 mEq/L; HCO3 VBG 29 mmol/L; PCO2 VBG 46 mmHg (38-50); PO2 VBG 28 mmHg; pH VBG 7.41 (7.36-7.41)
[2020-08-11 17:11] LABS: Oxygen Saturation VBG < 60.0 %
[2020-08-11] MEDS ORDERED: CEFEPIME 2,000 MG/20 ML VIAL IV STA (18:03)
[2020-08-11 18:25] LABS: Appearance Urine Cloudy (Clear); Bacteria Urine Automated Negative (Negative); Bilirubin Urine Negative (Negative); Blood Urine 3+ (Negative); Color Urine Yellow; Glucose Urine UA 3+ (Negative); Ketones Urine Negative (Negative); Leukocyte Esterase Urine Trace (Negative); Nitrite Urine Negative (Negative); Protein Urine 1+ (Negative); RBC Urine Automated >30 /hpf (0-4); Specific Gravity Urine 1.019 (1.000-1.030); Urobilinogen Urine Negative (Negative)
--- NOTE | 2020-08-11 18:56 | XRay Report ---
XR chest 1V portable HISTORY: 64 years-old Male weakness acute weakness COMPARISON: Chest CT 01/31/2017 TECHNIQUE: Portable AP view of the chest FINDINGS: Cardiomediastinal and hilar silhouettes are within normal limits. There is no pneumothorax, pleural e ffusion, airspace consolidation or overt pulmonary edema. Degenerative changes of the spine. IMPRESSION: No acute process. ACT 112: Negative or not required by law. The above report was generated using voice recognition software. It may contain grammatical, syntax o r spelling errors. Electronically signed by: Bereket Argueta M.D. 08/11/2020 6:55 PM
[2020-08-11] MEDS ORDERED: IOVERSOL 100ml IV ONE (19:03)
--- NOTE | 2020-08-11 19:44 | CT Scan Report ---
ABDOMEN AND PELVIS CT WITH IV CONTRAST CT DOSE: 554.83 mGy.cm HISTORY: Acute generalized abdominal pain status post Whipple procedure 07/14/2020. History of pancrea tic carcinoma. s/p whipple r/o infection TECHNIQUE: Multiaxial CT images of the abdomen and pelvis were performed following the IV administrat ion of 90 cc of Optiray 320, A dose lowering technique was utilized adhering to the principles of [place]. COMPARISON STUDY: Chest CT 01/31/2017, CT abdomen and pelvis 04/22/2014 FINDINGS: Mild bibasilar atelectasis. No metastatic foci identified within the lung bases. No pneumat osis or pneumoperitoneum. Moderate coronary artery calcifications. Indeterminate 5 mm subcapsular hypoechoic lesion of the superior spleen appears new from comparison. Mild thickening of the right adrenal gland. 1.5 cm soft tissue attenuating lesion of the left adrenal gland. On the study from 2013, a 12 mm adenoma of the left adrenal gland was noted. Postoperative ch anges of interval Whipple procedure no pancreatic ductal dilation. There is moderate wall thickening of the duodenum with adjacent periduodenal inflammatory stranding. Moderate mesenteric edema at the o perative bed is noted with focal phlegmon measuring up to 3.4 x 2.4 cm. No discrete abscess identifie d. Trace abdominal pelvic ascites. Pneumobilia. There is patency of the hepatic and portal veins. Sev eral hypodense hepatic lesions suggestive of metastasis are noted within the right left hepatic lobes . The largest lesion measures up to 2.1 cm within the hepatic dome. 2 nonobstructing calculi of the right kidney measure up to 6 mm. 3 nonobstructing calculi of the left kidney measure up to 1.3 cm. There are a few scattered hypodensities of the left kidney suggestive o f probable cysts. No hydronephrosis. Prominent prostate. Partial distention of the urinary bladder wi th mild wall thickening. Mild mixed plaque of the abdominal aorta without aneurysm. Unremarkable IVC. There are numerous pathologic lymph nodes present within the abdomen which include gastrohepatic, pe riportal, pericaval and periaortic adenopathy. Metastatic conglomerate lymph nodes within the lower p eriaortic distribution on image 251 series 3 measure 4.3 x 2.6 cm. No bowel obstruction. Mild fecal retention. Normal appendix. Postoperative changes of the ventral abd ominal wall with mild stranding. No acute fracture. Remote right-sided L5 pars defect. No suspicious lytic or blastic osseous lesions identified. IMPRESSION: 1. Interval postoperative changes of recent Whipple procedure. There is a small phlegmon/developing a bscess at the operative bed measuring up to 3.4 cm with adjacent moderate inflammatory stranding of t he mesentery. No drainable fluid collection. 2. Trace abdominal pelvic ascites with likely reactive wall thickening of the duodenum. 3. Hepatic metastasis are noted in addition to numerous lymphatic metastasis of the abdomen as above. 4. No bowel obstruction. 5. Nonobstructing bilateral nephrolithiasis. 6. Additional findings as above. ACT 112: Negative or not required by law. The above report was generated using voice recognition software. It may contain grammatical, syntax o r spelling errors. Electronically signed by: Bereket Argueta M.D. 08/11/2020 7:43 PM
[2020-08-11] MEDS ORDERED: SODIUM CHLORIDE 0.9% 1000ML 1,000 ML IV ONE (20:20)
[2020-08-11] MEDS ORDERED: metroNIDAZOLE 500 MG/100 ML BAG IV STA (20:36)
--- NOTE | 2020-08-11 20:53 | History & Physical Report ---
Date of Service August 11, 2020 Assessment & Plan (1) Severe sepsis: SIRS plus lactic acid elevation Possible intra-abdominal phlegmon/abscess, history of Whipple procedure for pancreatic/duodenal cancer HTN, patient hypotensive upon arrival at the ER BP currently improved after initial fluid bolus hx postop PAF, on Eliquis Hypercalcemia likely secondary to malignancy DM2 insulin requiring, suboptimal control as of recent outpatient hemoglobin A1c of 9.20 May 2020 Medical telemetry Cultures, Daptomycin, Cefepime, Flagyl IVF, follow lactic acid, follow serum calcium Appropriate to hold antihypertensives for now given hypotension General Surgery consult Re: Postop intra-abdominal phlegmon/abscess on CT (ER provider already in touch with [facility] General Surgery provider resident surgeon, Mr. Dc REHANA Del Angel) Hold Eliquis for now given potential need for procedural intervention Hypercalcemia work-up, Nephrology consult Re: Hypercalcemia Basal insulin, ISS BG goal [id number], carb count coverage, update hemoglobin A1c DVT prophylaxis. IV heparin while Eliquis on hold Full code ADDENDUM : Mr. Del Angel of General Surgery recommended contacting patient [facility] surgeon regarding CT findings. Case discussed with Dr. Flores who recommends [facility] transfer for once bed available for possible IR guided drainage of intra-abdominal fluid collection. Dr. Flores agrees with antibiotics and recommends keeping patient n.p.o. interim and holding therapeutic anticoagulation for PAF. He is agreeable to prophylactic Lovenox dose for DVT prophylaxis. Patient (Ms. Rossy Gale) updated of developments over the phone. She requests updates from providers through [phone]. Text document was generated using [employer] voice recognition software. It may contain grammatical or spelling errors. Kindly contact undersigned for clarification of any documentation item in question. History of Present Illness Chief Complaint: High sugars, possible infection Primary Care Provider: Emily Clarke DO History obtained from patient and records. Medical history significant for pancreatic/duodenal cancer status post surgery, hypertension, PAF on Eliquis, hyperlipidemia, DM2 insulin requiring, anxiety disorder. Patient confined at [facility] 3 weeks ago for elective Whipple procedure for duodenal/pancreatic carcinoma. Patient developed A. fib postop. Patient subsequently discharged on metoprolol and Eliquis medications. No concerns on outpatient follow-up with [facility] surgeon 9 days ago. Outpatient Oncology referral for possible chemotherapy. 2 weeks ago, patient started on basal insulin at home given hyperglycemia of 200 to 300s. Outpatient serum calcium blood work from August 03 noted to be 13. Patient with fatigue symptoms, feeling wiped out. Usual daily milk consumption of 2 to 3 glasses/day as per patient. Yellow drainage from incision site noted last week as per documentation. No fever, no chills. Wound care recommended by Surgery nurse. Basal insulin dose increased for progressive hyperglycemia. Patient seen at PCPs office 4 days ago for evaluation. Urinary frequency symptoms. No UTI on outpatient UA. On follow-up evaluation at PCPs office today for high sugars, patient noted to be hypotensive, tachycardic and hypothermic. Patient denies chest pain, S OB, cough, fever, chills. No unusual abdominal pain. Patient complaining of achy back pain. Patient directed to the ER for evaluation. Initial SBP 80s. Patient given Cefepime in the ER for sepsis. Medical History as above Surgical History : Cholecystectomy, urologic procedure, partial Whipple procedure Family History : Bladder cancer, epilepsy, heart disease, diabetes Personal/Social history : Non-smoker, no EtOH intake, retired from delivery work Allergies Allergy/AdvReac Type Severity Reaction Status Date / Time amoxicillin Allergy Intermediate DIFFICULTY Verified 08/11/20 22:41 BREATHING, RASH minocycline Allergy Unknown BLACKENED Verified 08/11/20 22:41 SKIN/RASH Penicillins Allergy Unknown FEVER AND Verified 08/11/20 22:41 RASH testosterone AdvReac Unknown MUSCLE Verified 08/11/20 22:41 ACHES,GI UPSET Home Medications Medication Instructions Recorded Confirmed Type acetaminophen 1,000 mg PO Q8H PRN 08/11/20 08/11/20 History apixaban 5 mg PO BID 08/11/20 08/11/20 History docusate sodium 100 mg PO BID PRN 08/11/20 08/11/20 History famotidine 20 mg PO HS 08/11/20 08/11/20 History insulin aspart U-100 [Novolog 15 unit SUBCUT TIDM 08/11/20 08/11/20 History Flexpen U-100 Insulin] insulin glargine [Lantus U-100 30 unit SUBCUT HS 08/11/20 08/11/20 History Insulin] lisinopril 40 mg PO QAM 08/11/20 08/11/20 History lorazepam 0.5 mg PO Q6H PRN 08/11/20 08/11/20 History magnesium chloride 64 mg PO QAM 08/11/20 08/11/20 History metformin 500 mg PO BID 08/11/20 08/11/20 History metoprolol succinate 100 mg PO QAM 08/11/20 08/11/20 History oxycodone 5 mg PO Q6H PRN 08/11/20 08/11/20 History sennosides [Senokot] 8.6 mg PO DAILY PRN 08/11/20 08/11/20 History Past Med/Surg History Social History Smoking Status: Never smoker Hx Alcohol Use: No Hx Substance Use: No Preferred Language: Turkish Communication Ability: Effective Vice President Diversity Required: No Beliefs That Will Affect Care: None Current Living Situation: Spouse Feels Safe at Home: Yes Assistive Devices: Glasses Review of Systems Review of Systems: As per HPI, all 10 systems reviewed, all other ROS negative Physical Exam Physical Exam: GENERAL: Comfortable, pleasant, no respiratory distress SKIN: Pallor , warm HEENT: Alopecia, bespectacled, pale palpebral conjunctivae, no ptosis, dry buccal mucosa NECK : Supple, no tenderness CHEST : CTA, no tenderness HEART : RRR, no obvious murmurs ABDOMEN: Some distention, nontender EXTREMITIES : No LE swelling/tenderness, no other conspicuous deformities noted NEUROLOGIC : Coherent, no facial asymmetry, no other gross focality Results & Data Results & Data ([facility]) Vital Signs (Past 12 Hours) Vital Signs Temp Pulse Resp BP Pulse Ox 08/11/20 19:30 148/78 H 98 08/11/20 19:13 86 15 142/83 H 97 08/11/20 19:12 89 23 98 08/11/20 18:30 88 23 149/87 H 99 08/11/20 18:10 92 H 18 123/76 98 08/11/20 17:30 97 H 14 137/80 99 08/11/20 17:00 92 H 16 129/76 98 08/11/20 16:47 98 H 20 08/11/20 16:30 98 H 18 124/73 08/11/20 16:17 97 08/11/20 16:05 36.0 C L 95 H 18 81/57 L 100 Laboratory Results Laboratory Results WBC 16.17 K/uL (4.8-10.8) H 08/11/20 16:25 RBC 4.91 M/uL (4.7-6.1) 08/11/20 16:25 Hgb 13.0 g/dL (14.0-18.0) L 08/11/20 16:25 Hct 40.4 % (42-52) L 08/11/20 16:25 MCV 82.3 fL (80-100) 08/11/20 16:25 MCH 26.5 pg (25-34) 08/11/20 16:25 MCHC 32.2 g/dL (32-36) 08/11/20 16:25 RDW Std Deviation 42.2 fL (36.4-46.3) 08/11/20 16:25 RDW Coeff of Gregorio 14.0 % (11.5-14.5) 08/11/20 16:25 Plt Count 423 K/uL (130-400) H 08/11/20 16:25 MPV 10.4 fL (7.4-10.4) 08/11/20 16:25 Immature Gran % (Auto) 0.4 % 08/11/20 16:25 Neut % (Auto) 81.2 % 08/11/20 16:25 Lymph % (Auto) 8.5 % 08/11/20 16:25 Bowie % (Auto) 9.5 % 08/11/20 16:25 Eos % (Auto) 0.3 % 08/11/20 16:25 Baso % (Auto) 0.1 % 08/11/20 16:25 Neut # (Auto) 13.13 K/uL (1.4-6.5) H 08/11/20 16:25 Lymph # (Auto) 1.38 K/uL (1.2-3.4) 08/11/20 16:25 Bowie # (Auto) 1.54 K/uL (0.11-0.59) H 08/11/20 16:25 Eos # (Auto) 0.05 K/uL (0-0.5) 08/11/20 16:25 Baso # (Auto) 0.01 K/uL (0-0.2) 08/11/20 16:25 Immature Gran # (Auto) 0.06 K/uL (0.00-0.02) H 08/11/20 16:25 PT 12.5 Seconds (9.0-12.0) H 08/11/20 16:25 INR 1.2 (0.9-1.1) H 08/11/20 16:25 VBG pH 7.41 (7.36-7.41) 08/11/20 16:49 VBG pCO2 46 mmHg (38-50) 08/11/20 16:49 VBG pO2 28 mmHg 08/11/20 16:49 VBG HCO3 29 mmol/L 08/11/20 16:49 VBG O2 Saturation < 60.0 % 08/11/20 16:49 VBG Base Excess 3.4 mEq/L 08/11/20 16:49 Barometric Pressure 735.5 mm/Hg 08/11/20 16:49 Sodium 132 mmol/L (136-145) L 08/11/20 16:25 Potassium 3.5 mmol/L (3.5-5.1) 08/11/20 16:25 Chloride 93 mmol/L (98-107) L 08/11/20 16:25 Carbon Dioxide 30 mmol/L (21-32) 08/11/20 16:25 Anion Gap 9.0 (3-11) 08/11/20 16:25 BUN 25 mg/dl (7-18) H 08/11/20 16:25 Creatinine 1.12 mg/dl (0.6-1.4) 08/11/20 16:25 Est Cr Clr Drug Dosing 64.5 ml/min 08/11/20 16:25 Est GFR ( Amer) 80.0 08/11/20 16:25 Est GFR (Non-Af Amer) 69.0 08/11/20 16:25 BUN/Creatinine Ratio 22.1 (10-20) H 08/11/20 16:25 Glucose 326 mg/dl (70-99) H* 08/11/20 16:25 POC Glucose 276 mg/dl (70-99) H 08/11/20 20:07 Lactate 5.3 mmol/L (0.4-2.0) H* 08/11/20 18:24 Calcium 15.3 mg/dl (8.5-10.1) H* 08/11/20 16:25 Magnesium 1.8 mg/dl (1.8-2.4) 08/11/20 16:25 Total Bilirubin 0.4 mg/dl (0.2-1) 08/11/20 16:25 AST 32 U/L (15-37) 08/11/20 16:25 ALT 36 U/L (12-78) 08/11/20 16:25 Alkaline Phosphatase 102 U/L (45-117) 08/11/20 16:25 Total Creatine Kinase 46 U/L (39-308) 08/11/20 16:25 Troponin I < 0.015 ng/ml (0-0.045) 08/11/20 16:25 Total Protein 7.7 gm/dl (6.4-8.2) 08/11/20 16:25 Albumin 3.3 gm/dl (3.4-5.0) L 08/11/20 16:25 Globulin 4.4 gm/dl (2.5-4.0) H 08/11/20 16:25 Albumin/Globulin Ratio 0.7 (0.9-2) L 08/11/20 16:25 Beta-Hydroxybutyric Acd mg/dl (0.2-2.81) 08/11/20 16:25 Urine Color Yellow 08/11/20 18:10 Urine Appearance Cloudy (Clear) A 08/11/20 18:10 Urine pH 5.0 (4.5-7.5) 08/11/20 18:10 Ur Specific [place] 1.019 (1.000-1.030) 08/11/20 18:10 Urine Protein 1+ (Negative) H 08/11/20 18:10 Urine Glucose (UA) 3+ (Negative) H 08/11/20 18:10 Urine Ketones Negative (Negative) 08/11/20 18:10 Urine Blood 3+ (Negative) H 08/11/20 18:10 Urine Nitrite Negative (Negative) 08/11/20 18:10 Urine Bilirubin Negative (Negative) 08/11/20 18:10 Urine Urobilinogen Negative (Negative) 08/11/20 18:10 Ur Leukocyte Esterase Trace (Negative) H 08/11/20 18:10 Urine WBC (Auto) 10-30 /hpf (0-5) H 08/11/20 18:10 Urine RBC (Auto) >30 /hpf (0-4) H 08/11/20 18:10 U Hyaline Cast (Auto) 5-10 /lpf (0-5) H 08/11/20 18:10 U Epithel Cells (Auto) 10-20 /lpf (0-5) H 08/11/20 18:10 Urine Bacteria (Auto) Negative (Negative) 08/11/20 18:10 [facility] 08/11/20 18:36 SARS-CoV-2, RNA, NAAT NEGATIVE (NEGATIVE) 08/11/20 18:36 Diagnostic Findings CXR: No acute process CT abdomen pelvis: 1. Interval postoperative changes of recent Whipple procedure. There is a small phlegmon/developing abscess at the operative bed measuring up to 3.4 cm with adjacent moderate inflammatory stranding of the mesentery. No drainable fluid collection. 2. Trace abdominal pelvic ascites with likely reactive wall thickening of the duodenum. 3. Hepatic metastasis are noted in addition to numerous lymphatic metastasis of the abdomen as above. 4. No bowel obstruction. 5. Nonobstructing bilateral nephrolithiasis. EKG as per my interpretation: Rate 105, sinus tachycardia, normal axis, no ischemia
--- NOTE | 2020-08-11 21:02 | Surgery Consultation ---
Date of Consultation August 11, 2020 Assessment & Plan (1) Phlegmon of pancreas: -currently fluid collection does not appear large enough to warrant drainage -recommend te following: -improve glucose control as hyperglycemia may be contributing to urinary frequency/dehydration/hypotension -continue abx.--he has received cefepime & flagyl -continue hydration measures -call surgical service at facility where procedure was performed for further recommendations; if drainage required pt. will likely need transfer where IR available Supervising Physician Co-Signing Physician Notes Patient discussed with NOÉ Vasquez, history, labs and films reviewed, agree with above. 64 y/o male 3 weeks s/p whipple at [facility], admitted with hypotension and hyperglycemia. CT reviewed, shows small fluid collection that could represent abscess. Plan for IV abx, recommend updating [place] hepatobiliary surgery service about patient's condition tomorrow. If IR drainage needed, then recommend transfer. Surgery will follow for now. History of Present Illness Reason for Consultation: Abdominal Abscess History of Present Illness 64 year old male presented to [facility] at the recommendation of his PCP. The pt. notes he had a Whipple procedure in early July of this year by Dr. Chito marx at [facility] in [place], [place]. He went to his PCP office as he felt dehydrated. He was noted to be hypotensive so he was sent to the ED. He notes his glucose levels have been running high and his apatite has been decreased. He denies N/V, diarrhea, fevers, shakes, chills, cough, or SOB. He notes urinary frequency. In the ED, he was hypotensive upon arrival, but this responded well to IVF. He had a CT scan of the abdomen that showed concern for a developing abscess in the surgical bed, but the interpreting radiologist did not feel it was large enough for drainage. His WBC was 16K, H/H was 13 and 40.4. Glucose was 326 and his renal function and electrolytes were unremarkable. At the time of my exam he was normotensive and in no distress. Allergies Allergy/AdvReac Type Severity Reaction Status Date / Time amoxicillin Allergy Intermediate DIFFICULTY Verified 08/11/20 22:41 BREATHING, RASH minocycline Allergy Unknown BLACKENED Verified 08/11/20 22:41 SKIN/RASH Penicillins Allergy Unknown FEVER AND Verified 08/11/20 22:41 RASH testosterone AdvReac Unknown MUSCLE Verified 08/11/20 22:41 ACHES,GI UPSET Home Medications Medication Instructions Recorded Confirmed Type acetaminophen 1,000 mg PO Q8H PRN 08/11/20 08/11/20 History apixaban 5 mg PO BID 08/11/20 08/11/20 History docusate sodium 100 mg PO BID PRN 08/11/20 08/11/20 History famotidine 20 mg PO HS 08/11/20 08/11/20 History insulin aspart U-100 [Novolog 15 unit SUBCUT TIDM 08/11/20 08/11/20 History Flexpen U-100 Insulin] insulin glargine [Lantus U-100 30 unit SUBCUT HS 08/11/20 08/11/20 History Insulin] lisinopril 40 mg PO QAM 08/11/20 08/11/20 History lorazepam 0.5 mg PO Q6H PRN 08/11/20 08/11/20 History magnesium chloride 64 mg PO QAM 08/11/20 08/11/20 History metformin 500 mg PO BID 08/11/20 08/11/20 History metoprolol succinate 100 mg PO QAM 08/11/20 08/11/20 History oxycodone 5 mg PO Q6H PRN 08/11/20 08/11/20 History sennosides [Senokot] 8.6 mg PO DAILY PRN 08/11/20 08/11/20 History Patient History Social History Smoking Status: Never smoker Preferred Language: Cameroonian Feels Safe at Home: Yes Review of Systems Constitutional: + fatigue and + anorexia; no fever and no body aches Eyes: no diplopia Ear, Nose, Mouth, Throat: no ear pain Respiratory: no cough and no dyspnea Cardiovascular: no chest pain Gastrointestinal: no abdominal pain, no nausea, no vomiting and no diarrhea/loose stools Genitourinary: + urinary frequency; no dysuria Musculoskeletal: no back pain Integumentary: no rash Neurologic: no localized weakness Physical Exam Constitutional: well developed and well nourished; no acute distress Eyes: no conjunctival abnormality ENMT: Ears: no hearing impairment Respiratory: normal respiratory effort, lungs clear to auscultation Cardiovascular: Rate/Rhythm: regular rate and regular rhythm Gastrointestinal (Abdomen): Percussion/Palpation: abdomen soft; abdomen nontender well healing midline incision, no hernias Musculoskeletal: no calf pain Skin: no rashes, warm and dry Neurologic: moves all extremities Results & Data ([facility]) Vital Signs (Past 12 Hours) Vital Signs Temp Pulse Resp BP Pulse Ox 08/11/20 19:30 148/78 H 98 08/11/20 19:13 86 15 142/83 H 97 08/11/20 19:12 89 23 98 08/11/20 18:30 88 23 149/87 H 99 08/11/20 18:10 92 H 18 123/76 98 08/11/20 17:30 97 H 14 137/80 99 08/11/20 17:00 92 H 16 129/76 98 08/11/20 16:47 98 H 20 08/11/20 16:30 98 H 18 124/73 08/11/20 16:17 97 08/11/20 16:05 36.0 C L 95 H 18 81/57 L 100 PG Care Time/CCT Total # of Minutes Spent Total Time Spent with Patient: Total time spent is greater than 50% in coordination of care (as documented) at patient's floor/unit and/or counseling patient: Coding Level of Care Code 97451 Inpt Consult Level 4 Diagnoses Phlegmon of pancreas K85.90
[2020-08-11 21:22] LABS: Calcium 13.8 mg/dl (8.5-10.1); Phosphorus 1.8 mg/dl (2.5-4.9); Thyroid Stimulating Hormone 0.263 uIu/ml (0.300-4.500)
[2020-08-11] MEDS ORDERED: INSULIN GLARGINE SOLOSTAR 100 UNITS/ML 3 ML PEN SC STA (21:48)
[2020-08-11] MEDS ORDERED: NSS + 20MEQ KCL 20 MEQ/1,000 ML BAG IV ONE (22:40)
[2020-08-11] MEDS ORDERED: oxyCODONE HCL IR 5 MG TAB (IMMEDIATE RELEASE) PO PRN (23:48)
[2020-08-11] MEDS ORDERED: GLUCOSE 10 TABS/TUBE PO PRN (23:48)
[2020-08-11] MEDS ORDERED: Heparin IV Standard *NO* Bolus IV ONE (23:48)
[2020-08-11] MEDS ORDERED: GLUCAGON FOR INJ 1 MG VIAL SQ PRN (23:48)
[2020-08-11] MEDS ORDERED: CARBOHYDRATES FOR HYPOGLYCEMIA PO PRN (23:48)
[2020-08-11] MEDS ORDERED: HEPARIN SODIUM/DEXTROSE 25,000 UNITS/500 ML BAG IV SCH (23:48)
[2020-08-11] MEDS ORDERED: GLUCOSE 40% GEL 15 GM TUBE PO PRN (23:48)
[2020-08-11] MEDS ORDERED: DEXTROSE 50% 50 ML SYRINGE IV PRN (23:48)
[2020-08-11] MEDS ORDERED: SENNA 8.6 MG TAB PO PRN (23:56)
[2020-08-11] MEDS ORDERED: DOCUSATE SODIUM 100 MG CAP PO PRN (23:56)
[2020-08-11] MEDS ORDERED: MoRPHine SULFATE 4 MG/ML 1 ML CARP\\VIAL IV PRN (23:57)
[2020-08-12] MEDS ORDERED: CEFEPIME CONSULT ACTIVE PRN (00:08)
[2020-08-12] MEDS ORDERED: DAPTOmycin 275 MG in SYRINGE 0 ML IV ONE (00:15)
[2020-08-12] MEDS: ACETAMINOPHEN 325 MG TAB PO PRN ×3 (00:35→12:50)
[2020-08-12] MEDS: INSULIN ASPART 100 UNITS/ML 3 ML PEN SC SCH ×4 (00:35→18:30)
[2020-08-12] MEDS ORDERED: POTASSIUM PHOS 3 MMOL/1 ML INFUSION IV STA (00:40)
[2020-08-12] MEDS ORDERED: POTASSIUM PHOSPHATE 30 MMOL in SODIUM CHLORIDE 0.9% 500 ML IV ONE (00:45)
[2020-08-12] MEDS ORDERED: NSS + 20MEQ KCL 20 MEQ/1,000 ML BAG IV SCH (03:40)
[2020-08-12 04:17] LABS: Basophils # (auto) 0.01 K/uL (0-0.2); Basophils % (auto) 0.1 %; Eosinophils # (auto) 0.04 K/uL (0-0.5); Eosinophils % (auto) 0.3 %; Hemoglobin 10.4 g/dL (14.0-18.0); Immature Granulocytes # (auto) 0.04 K/uL (0.00-0.02); Immature Granulocytes % (auto) 0.3 %; Mean Corpuscular Hemoglobin 26.5 pg (25-34); Mean Corpuscular Hgb Conc 32.5 g/dL (32-36); Mean Corpuscular Volume 81.4 fL (80-100); Mean Platelet Volume 9.9 fL (7.4-10.4); Monocytes # (auto) 1.14 K/uL (0.11-0.59); Monocytes % (auto) 9.1 %; Neutrophils # (auto) 10.27 K/uL (1.4-6.5); Neutrophils % (auto) 82.2 %; Platelet Count 302 K/uL (130-400); RDW Coefficient of Variation 13.9 % (11.5-14.5); RDW Standard Deviation 42.2 fL (36.4-46.3); Red Blood Count 3.93 M/uL (4.7-6.1)
[2020-08-12] MEDS ORDERED: SODIUM CHLORIDE 0.9% 1000ML 1,000 ML IV ONE (05:01)
[2020-08-12 05:04] LABS: BUN Creatinine Ratio 27.2 (10-20); Creatinine Clr Calc Pharmacy 107.8 ml/min; Est GFR (African American) 117.7; Est GFR (Non-African American) 101.5; Potassium 3.8 mmol/L (3.5-5.1)
[2020-08-12] MEDS: NSS + 20MEQ KCL 20 MEQ/1,000 ML BAG IV SCH ×4 (06:00→23:37)
[2020-08-12] MEDS: INSULIN GLARGINE SOLOSTAR 100 UNITS/ML 3 ML PEN SC SCH ×2 (06:18→21:03)
[2020-08-12] MEDS: CEFEPIME 2,000 MG in SYRINGE 0 ML IV SCH ×2 (06:20→18:31)
[2020-08-12 07:02] LABS: Estimated Average Glucose 183 mg/dl
--- NOTE | 2020-08-12 08:12 | Surgery Progress Note ---
Date of Service August 12, 2020 Assessment & Plan (1) Phlegmon of pancreas: Patient is s/p whipple procedure on 07/14 who was admitted on 08/11/20 with weakness/fatigue/dehydration; CT scan obtained revealed a small phlegmon/developing abscess at the operative bed measuring up to 3.4 cm with adjacent moderate inflammatory stranding of the mesentery, no drainable fluid collection - Patient says he is feeling better than yesterday, denies any abdominal complaints - WBC 12 (16) on IV cefepime, daptomycin, and flagyl - Discussed with hospitalists who reached out to [facility] last evening who recommended transfer for possible IR drainage. Transfer is currently being initiated, awaiting for a bed to become available Admission and Anticipated Discharge Date Admission Date: August 11, 2020 Supervising Physician Co-Signing Physician Notes Patient seen and examined, agree with above. Patient with history of Whipple procedure on July 15 at [facility], admitted overnight with hypoglycemia, hypotension, dehydration, and noted to have a 3 cm fluid collection with inflammation near the surgical bed consistent with a possible abscess. He is awaiting transfer to [place] for definitive management. For now he is feeling better than he did yesterday. He is on IV antibiotics. His incision is well- healed, abdomen is soft, nontender, nondistended. WBC 12.5, down from 16. CT reviewed. No surgical intervention at this time, awaiting transfer to [place] for definitive therapy which may include IR drainage versus continued bowel rest and IV antibiotics. Dr. Patel is covering over the weekend. Subjective Patient denies abdominal pain, nausea/vomiting. Says he is feeling stronger & somewhat better than yesterday. Physical Exam Physical Exam: awake/alert Respiratory: normal respiratory effort Gastrointestinal (Abdomen): Inspection/Auscultation: + abdominal surgical incision (c/d/i with some scabbing); abdomen not distended Percussion/Palpation: abdomen soft; abdomen nontender Results & Data ([facility]) Vital Signs (Past 12 Hours) Vital Signs Temp Pulse Pulse Resp BP BP Pulse Ox 08/12/20 07:28 36.4 C L 82 18 144/82 H 98 08/12/20 07:14 78 08/12/20 03:36 36.7 C 77 18 125/77 99 08/12/20 01:27 90 08/11/20 23:40 36.4 C L 91 H 20 113/75 100 08/11/20 23:10 91 H 21 152/89 H 08/11/20 23:09 90 13 08/11/20 22:30 83 23 08/11/20 22:02 92 H 18 08/11/20 22:01 96 H 14 08/11/20 21:41 91 H 21 08/11/20 21:40 92 H 20 139/80 08/11/20 20:30 89 22 135/83 PG Care Time/CCT Total # of Minutes Spent Total Time Spent with Patient: Total time spent is greater than 50% in coordination of care (as documented) at patient's floor/unit and/or counseling patient: Coding Level of Care Code 86483 Subseq Hosp Care Lvl 1 Diagnoses Phlegmon of pancreas K85.90
[2020-08-12 08:50] LABS: BUN Creatinine Ratio 28.6 (10-20); Calcium 12.5 mg/dl (8.5-10.1); Creatinine Clr Calc Pharmacy 124.5 ml/min; Est GFR (African American) 124.9; Est GFR (Non-African American) 107.7; Potassium 3.6 mmol/L (3.5-5.1)
[2020-08-12] MEDS ORDERED: INSULIN GLARGINE SOLOSTAR 100 UNITS/ML 3 ML PEN SC SCH (09:00)
[2020-08-12] MEDS ORDERED: METOPROLOL SUCC 25MG EXT REL TAB PO SCH (09:00)
[2020-08-12] MEDS ORDERED: ENOXAPARIN INJ 40 MG/0.4 ML SYR SQ SCH (09:00)
[2020-08-12] MEDS ORDERED: CALCITONIN SALMON 400 UNITS/2 ML SQ SCH (09:15)
[2020-08-12] MEDS ORDERED: ZOLEDRONIC ACID 4 MG in 0.9 % SODIUM CHLORIDE 100 ML IV ONE (09:45)
[2020-08-12] MEDS: CALCITONIN SALMON SQ SCH ×2 (10:50→21:01)
[2020-08-12] MEDS: metroNIDAZOLE 500 MG/100 ML BAG IV SCH ×3 (10:51→23:39)
--- NOTE | 2020-08-12 11:14 | Electrocardiogram Report ---
Test Reason : Blood Pressure : / mmHG Vent. Rate : 105 BPM Atrial Rate : 105 BPM P-R Int : 156 ms QRS Dur : 082 ms QT Int : 288 ms P-R-T Axes : 059 020 068 degrees QTc Int : 380 ms Sinus tachycardia Nonspecific ST and T wave abnormality Abnormal ECG No previous ECGs available Confirmed by Xiang Robertson ([id number]) on 08/12/2020 11:13:33 AM Referred By: Ashley Yun Confirmed By:Stef Robertson
[2020-08-12] MEDS: ACETAMINOPHEN 500 MG TAB PO PRN ×2 (13:27→21:01)
--- NOTE | 2020-08-12 15:57 | Nephrology Consultation ---
Date of Consultation August 12, 2020 Assessment & Plan (1) Hypercalcemia: Patient with hypercalcemia likely due to malignancy and poor p.o. intake. Calcium was improved to 12.5 with IV fluids. Given history of cancer, calcium onset and the rise. -We will give Zometa 4 mg once -We will give calcitonin 300 mcg twice daily for 4 doses. -We will check PTH and vitamin D - agree with current rate of IV fluids History of Present Illness Reason for Consultation: Hypercalcemia Requesting Physician: Eliud Russo MD Attending Physician: Eliud Russo MD History of Present Illness This is a 64-year-old male with history of pancreatic cancer s/p whipple procedu re on 07/14 who was admitted on 08/11/20 with hypotension at the PCPs office found to have hypercalcemia with calcium of 15.3. He also had a CT scan which revealed a small phlegmon/developing abscess at the operative bed measuring up to 3.4 cm. He is planned for transfer to tertiary center for drainage of the abscess. He has been receiving IV fluids and calcium is down to 12.5. He feels better. He has less back pain. He tries to drink fluids but thinks it is not enough. He denied NSAID use. No vomiting or diarrhea. He quit vitamin D 4 days ago. He does not take calcium supplements Allergies Allergy/AdvReac Type Severity Reaction Status Date / Time amoxicillin Allergy Intermediate DIFFICULTY Verified 08/11/20 22:41 BREATHING, RASH minocycline Allergy Unknown BLACKENED Verified 08/11/20 22:41 SKIN/RASH Penicillins Allergy Unknown FEVER AND Verified 08/11/20 22:41 RASH testosterone AdvReac Unknown MUSCLE Verified 08/11/20 22:41 ACHES,GI UPSET Home Medications Medication Instructions Recorded Confirmed Type acetaminophen 1,000 mg PO Q8H PRN 08/11/20 08/11/20 History apixaban 5 mg PO BID 08/11/20 08/11/20 History docusate sodium 100 mg PO BID PRN 08/11/20 08/11/20 History famotidine 20 mg PO HS 08/11/20 08/11/20 History insulin aspart U-100 [Novolog 15 unit SUBCUT TIDM 08/11/20 08/11/20 History Flexpen U-100 Insulin] insulin glargine [Lantus U-100 30 unit SUBCUT HS 08/11/20 08/11/20 History Insulin] lisinopril 40 mg PO QAM 08/11/20 08/11/20 History lorazepam 0.5 mg PO Q6H PRN 08/11/20 08/11/20 History magnesium chloride 64 mg PO QAM 08/11/20 08/11/20 History metformin 500 mg PO BID 08/11/20 08/11/20 History metoprolol succinate 100 mg PO QAM 08/11/20 08/11/20 History oxycodone 5 mg PO Q6H PRN 08/11/20 08/11/20 History sennosides [Senokot] 8.6 mg PO DAILY PRN 08/11/20 08/11/20 History Patient History Social History Smoking Status: Never smoker Hx Alcohol Use: No Hx Substance Use: No Preferred Language: Pashto Communication Ability: Effective Candy Catcher Required: No Beliefs That Will Affect Care: None Current Living Situation: Spouse Feels Safe at Home: Yes Assistive Devices: Glasses Review of Systems Review of Systems: All systems reviewed & are unremarkable except as noted in HPI & below Physical Exam Physical Exam: General exam: Appears comfortable, no acute distress HEENT: Pupils are equal and reactive to light Neck: No JVD, neck is supple trachea is midline Respiratory system: Clear breath sounds bilaterally. Gastrointestinal: Abdomen is soft, non distended, non tender, bowel sounds are present CVS: Regular rate and rhythm. No murmurs, rubs or gallops Musculoskeletal: No joint or muscle tenderness Extremities: Non tender, no edema, peripheral pulses are present Neuro: Oriented, no tremors, no focal neurological deficits Skin: No rashes Results & Data ([facility]) Vital Signs (Past 12 Hours) Vital Signs Temp Pulse Pulse Resp BP Pulse Ox 08/12/20 15:36 82 08/12/20 15:31 36.5 C 81 18 158/83 H 99 08/12/20 12:47 36.8 C 94 H 18 157/85 H 96 08/12/20 07:28 36.4 C L 82 18 144/82 H 98 08/12/20 07:14 78 Laboratory Results 08/12/20 08:01 08/11/20 08/11/20 08/11/20 16:25 16:25 20:41 WBC 16.17 H RBC 4.91 MCV 82.3 MCH 26.5 MCHC 32.2 RDW Std Deviation 42.2 RDW Coeff of Gregorio 14.0 Plt Count 423 H MPV 10.4 Phosphorus 1.8 L Albumin 3.3 L 08/12/20 03:58 WBC 12.50 H RBC 3.93 L MCV 81.4 MCH 26.5 MCHC 32.5 RDW Std Deviation 42.2 RDW Coeff of Gregorio 13.9 Plt Count 302 MPV 9.9 Phosphorus Albumin
--- NOTE | 2020-08-12 17:40 | Discharge Summary ---
Date of Service August 12, 2020 Admission HPI Per Admitting Provider History obtained from patient and records. Medical history significant for pancreatic/duodenal cancer status post surgery, hypertension, PAF on Eliquis, hyperlipidemia, DM2 insulin requiring, anxiety disorder. Patient confined at [facility] 3 weeks ago for elective Whipple procedure for duodenal/pancreatic carcinoma. Patient developed A. fib postop. Patient subsequently discharged on metoprolol and Eliquis medications. No concerns on outpatient follow-up with [facility] [place] 9 days ago. Outpatient Oncology referral for possible chemotherapy. 2 weeks ago, patient started on basal insulin at home given hyperglycemia of 200 to 300s. Outpatient serum calcium blood work from August 03 noted to be 13. Patient with fatigue symptoms, feeling wiped out. Usual daily milk consumption of 2 to 3 glasses/day as per patient. Yellow drainage from incision site noted last week as per documentation. No fever, no chills. Wound care recommended by Surgery nurse. Basal insulin dose increased for progressive hyperglycemia. Patient seen at PCPs office 4 days ago for evaluation. Urinary frequency symptoms. No UTI on outpatient UA. On follow-up evaluation at PCPs office today for high sugars, patient noted to be hypotensive, tachycardic and hypothermic. Patient denies chest pain, S OB, cough, fever, chills. No unusual abdominal pain. Patient complaining of achy back pain. Patient directed to the ER for evaluation. Initial SBP 80s. Patient given Cefepime in the ER for sepsis. Medical History as above Surgical History : Cholecystectomy, urologic procedure, partial Whipple procedure Family History : Bladder cancer, epilepsy, heart disease, diabetes Personal/Social history : Non-smoker, no EtOH intake, retired from delivery work Admission Exam Per Admitting Provider Physical Exam Physical Exam: GENERAL: Comfortable, pleasant, no respiratory distress SKIN: Pallor , warm HEENT: Alopecia, bespectacled, pale palpebral conjunctivae, no ptosis, dry buccal mucosa NECK : Supple, no tenderness CHEST : CTA, no tenderness HEART : RRR, no obvious murmurs ABDOMEN: Some distention, nontender EXTREMITIES : No LE swelling/tenderness, no other conspicuous deformities noted NEUROLOGIC : Coherent, no facial asymmetry, no other gross focality Principal Diagnosis Severe sepsis Intra-abdominal abscess Recent Whipple procedure for pancreatic/duodenal cancer Hepatic, lymphatic metastasis Lactic acidosis Hypercalcemia Discharge Exam Physical Exam: Vitals signs as noted above General Appearance:Moderately built and nourished, no apparent distress Head: normocephalic, Atraumatic Eyes: normal inspection, EOMI Neck: supple, Trachea midline Respiratory/Chest: Normal breath sounds, CTA Cardiovascular: S1, S2, + murmur Abdomen/GI:Soft, Mild distended, Non tender, Bowel sounds present, + Vertical surgical scar Extremities/Musculoskelatal:normal inspection, 1+ B/L LE edema Neurologic/Psych:AAOX3, grossly no focal neurological deficits Skin: normal color, warm Discharge Data Allergies Allergy/AdvReac Type Severity Reaction Status Date / Time amoxicillin Allergy Intermediate DIFFICULTY Verified 08/11/20 22:41 BREATHING, RASH minocycline Allergy Unknown BLACKENED Verified 08/11/20 22:41 SKIN/RASH Penicillins Allergy Unknown FEVER AND Verified 08/11/20 22:41 RASH testosterone AdvReac Unknown MUSCLE Verified 08/11/20 22:41 ACHES,GI UPSET Consultations 08/11/20 20:07 ED Decision to Admit Stat 08/11/20 22:03 Burn CD for patient Stat 08/11/20 23:48 Consult General Surgery Routine Consult Nephrology Routine 08/12/20 17:18 Burn CD for patient Stat Procedures Performed CT ABD: FINDINGS: Mild bibasilar atelectasis. No metastatic foci identified within the lung bases. No pneumatosis or pneumoperitoneum. Moderate coronary artery calcifications. Indeterminate 5 mm subcapsular hypoechoic lesion of the superior spleen appears new from comparison. Mild thickening of the right adrenal gland. 1.5 cm soft tissue attenuating lesion of the left adrenal gland. On the study from 2013, a 12 mm adenoma of the left adrenal gland was noted. Postoperative changes of interval Whipple procedure no pancreatic ductal dilation. There is moderate wall thickening of the duodenum with adjacent periduodenal inflammatory stranding. Moderate mesenteric edema at the operative bed is noted with focal phlegmon measuring up to 3.4 x 2.4 cm. No discrete abscess identified. Trace abdominal pelvic ascites. Pneumobilia. There is patency of the hepatic and portal veins. Several hypodense hepatic lesions suggestive of metastasis are noted within the right left hepatic lobes. The largest lesion measures up to 2.1 cm within the hepatic dome. 2 nonobstructing calculi of the right kidney measure up to 6 mm. 3 nonobstructing calculi of the left kidney measure up to 1.3 cm. There are a few scattered hypodensities of the left kidney suggestive of probable cysts. No hydronephrosis. Prominent prostate. Partial distention of the urinary bladder with mild wall thickening. Mild mixed plaque of the abdominal aorta without aneurysm. Unremarkable IVC. There are numerous pathologic lymph nodes present within the abdomen which include gastrohepatic, periportal, pericaval and periaortic adenopathy. Metastatic conglomerate lymph nodes within the lower periaortic distribution on image 251 series 3 measure 4.3 x 2.6 cm. No bowel obstruction. Mild fecal retention. Normal appendix. Postoperative changes of the ventral abdominal wall with mild stranding. No acute fracture. Remote right-sided L5 pars defect. No suspicious lytic or blastic osseous lesions identified. IMPRESSION: 1. Interval postoperative changes of recent Whipple procedure. There is a small phlegmon/developing abscess at the operative bed measuring up to 3.4 cm with adjacent moderate inflammatory stranding of the mesentery. No drainable fluid collection. 2. Trace abdominal pelvic ascites with likely reactive wall thickening of the duodenum. 3. Hepatic metastasis are noted in addition to numerous lymphatic metastasis of the abdomen as above. 4. No bowel obstruction. 5. Nonobstructing bilateral nephrolithiasis. 6. Additional findings as above. CXR: FINDINGS: Cardiomediastinal and hilar silhouettes are within normal limits. There is no pneumothorax, pleural effusion, airspace consolidation or overt pulmonary edema. Degenerative changes of the spine. IMPRESSION: No acute process. Ordered Studies 08/11/20 18:03 CT abd pelvis IV con only Stat Hospital Course (1) Severe sepsis: Severe Sepsis Intra-abdominal abscess Recent Whipple procedure for pancreatic/duodenal cancer on 07/14 Lactic Acidosis --CT ABD:Interval postoperative changes of recent Whipple procedure. There is a small phlegmon/developing abscess at the operative bed measuring up to 3.4 cm with adjacent moderate inflammatory stranding of the mesentery. No drainable fluid collection. Trace abdominal pelvic ascites with likely reactive wall thickening of the duodenum. Hepatic metastasis are noted in addition to numerous lymphatic metastasis of the abdomen as above. No bowel obstruction. Nonobstructing bilateral nephrolithiasis. -Continue IV fluids Continue daptomycin, cefepime, Flagyl -Blood/Urine Cx:pending -Appreciate Surgery Input -Kept NPO for now Transferred to [facility] for IR drainage of the abscess. Dr. Flores kindly accepted the patient for further management. Hypercalcemia Likely secondary to malignancy Hepatic, lymphatic metastasis noted on CT scan Given Zometa Continue calcitonin 300 mcg twice daily for 4 doses Continue aggressive IV fluids Appreciate nephrology input PTH, vitamin D levels pending HTN Presented with hypotension Resume home antihypertensives as able Blood pressure improved with IV fluids Monitor H/O P.Afib Eliquis held for procedure Lovenox SQ while hospitalized for now DM II Hemoglobin A1c of 9.20 May 2020 Hold Metformin Continue insulin therapy while hospitalized DVT Px: Lovenox SQ for now Resume Eliquis as able Code Status Full [facility] Time Total Time Spent Total Time Spent (In Minutes): 45 minutes Total Time Includes: Examination of the Patient, Discharge Planning, Medication Reconciliation, Communication With Other Providers and Other Discharge Plan Discharge Items Patient Disposition: Transfer Acute Care Hospital Reason For Visit: SEPSIS Discharge Diagnosis: Severe sepsis Intra-abdominal abscess Recent Whipple procedure for pancreatic/duodenal cancer Hepatic, lymphatic metastasis Lactic acidosis Hypercalcemia Activity: Per Instructions section Exercise/Sports: Wait until after follow-up appointment Non-emergency contact: Primary Care Provider and Surgeon Call non-emergency contact if: you have any medication questions, your symptoms worsen, your pain is not controlled, your pain is worsening, your pain is unusual for you, your pain is concerning for you and you have a fever Follow-up/Referrals: Emily Clarke DO [Primary Care Provider] - Diet: Nothing by Mouth Addtl Attending Provider Instructions: Follow up with at [facility] for further evaluation and management Pending Studies at Discharge: Yes Studies:: Blood, Urine Culture Stand-Alone Forms: My [facility] Skilled Items Patient informed of condition?: Yes DNR: No Discharge Level of Care: Other Communicable Disease: No Discharge Prognosis: Stable Lines: Peripheral IV Urinary Catheter: No Medications and DC Order Prescriptions: New cefepime 2 gram Recon Soln 1 dose Not Applicable UD PRNQty: 0 RF: 0 daptomycin [Cubicin] 500 mg Recon Soln 1 dose Not Applicable UD PRNQty: 0 RF: 0 Continued metformin 500 mg Tablet 500 mg PO BID RF: 0 sennosides [Senokot] 8.6 mg Tablet 8.6 mg PO DAILY PRN (Reason: Constipation) RF: 0 Lantus U-100 Insulin 100 unit/mL Solution 30 unit SUBCUT HS RF: 0 lorazepam 0.5 mg Tablet 0.5 mg PO Q6H PRN (Reason: Anxiety) RF: 0 docusate sodium 100 mg Capsule 100 mg PO BID PRN (Reason: Constipation) RF: 0 lisinopril 40 mg Tablet 40 mg PO QAM RF: 0 insulin aspart U-100 [Novolog Flexpen U-100 Insulin] 100 unit/mL (3 mL) Insulin Pen 15 unit SUBCUT TIDM RF: 0 metoprolol succinate 100 mg Tablet Extended Release 24 Hr 100 mg PO QAM RF: 0 acetaminophen 500 mg Tablet 1,000 mg PO Q8H PRN (Reason: Pain) RF: 0 famotidine 20 mg Tablet 20 mg PO HS RF: 0 magnesium chloride 64 mg Tablet,Delayed Release (Dr/Ec) 64 mg PO QAM RF: 0 apixaban 5 mg Tablet 5 mg PO BID RF: 0 oxycodone 5 mg Tablet 5 mg PO Q6H PRN (Reason: Pain, Moderate/Severe) RF: 0 Discharge Orders: Discharge Order (Routine); Ordered 08/12/20 Ordered By: Eliud Russo Admission Data Admit Date/Time: 08/11/20 20:59 Attending Provider: Eliud Russo Admit Provider: Will Samayoa Primary Care Provider: Emily Clarke Other Providers: Will Samayoa ; Nathan Chew ; Javy Del Angel ; Stanford Stuart ; Fadi Garcia Jr ; Eugene Ogden ; Myron Miller ; Roya Thompson ; Alan Desai ; Tulio Plata ; Alanna Arellano ; Daren Song ; Kiersten Melo ; Heidy Villar ; Juan Luis Love ; Uriah Donaldson
[2020-08-12] MEDS ORDERED: FAMOTIDINE 20 MG TAB PO SCH (21:00)
[2020-08-12] MEDS: PROMETHAZINE HCL 12.5 MG in SODIUM CHLORIDE 0.9% 50 ML IV PRN (21:01)
[2020-08-12] MEDS ORDERED: DAPTOmycin 275 MG in SYRINGE 0 ML IV SCH (22:00)
[2020-08-12] MEDS ORDERED: METOPROLOL SUCC 25MG EXT REL TAB PO STA (22:08)
[2020-08-12 23:48] VITALS: TEMP 97.7
[2020-08-13] MEDS: INSULIN ASPART 100 UNITS/ML 3 ML PEN SC SCH ×2 (00:36→06:21)
[2020-08-13] MEDS: ACETAMINOPHEN 500 MG TAB PO PRN (04:36)
[2020-08-13] MEDS: PROMETHAZINE HCL 12.5 MG in SODIUM CHLORIDE 0.9% 50 ML IV PRN (04:55)
[2020-08-13] MEDS: CEFEPIME 2,000 MG in SYRINGE 0 ML IV SCH (05:43)
[2020-08-13] MEDS: NSS + 20MEQ KCL 20 MEQ/1,000 ML BAG IV SCH (05:44)
[2020-08-13 06:32] LABS: Basophils # (auto) 0.02 K/uL (0-0.2); Basophils % (auto) 0.2 %; Eosinophils # (auto) 0.02 K/uL (0-0.5); Eosinophils % (auto) 0.2 %; Hematocrit (blood only) 33.5 % (42-52); Hemoglobin 10.4 g/dL (14.0-18.0); Immature Granulocytes # (auto) 0.02 K/uL (0.00-0.02); Immature Granulocytes % (auto) 0.2 %; Lymphocytes # (auto) 0.33 K/uL (1.2-3.4); Lymphocytes % (auto) 2.9 %; Mean Corpuscular Hemoglobin 25.5 pg (25-34); Mean Corpuscular Volume 82.1 fL (80-100); Mean Platelet Volume 9.6 fL (7.4-10.4); Monocytes # (auto) 0.57 K/uL (0.11-0.59); Monocytes % (auto) 4.9 %; Neutrophils # (auto) 10.61 K/uL (1.4-6.5); Neutrophils % (auto) 91.6 %; Platelet Count 239 K/uL (130-400); RDW Coefficient of Variation 14.1 % (11.5-14.5); RDW Standard Deviation 42.6 fL (36.4-46.3); Red Blood Count 4.08 M/uL (4.7-6.1); White Blood Count 11.57 K/uL (4.8-10.8)
[2020-08-13 07:09] VITALS: BP 148/81; O2SAT 98
[2020-08-13 07:11] LABS: Calcium 10.6 mg/dl (8.5-10.1); Creatinine Clr Calc Pharmacy 136.2 ml/min; Est GFR (African American) 129.6; Est GFR (Non-African American) 111.8; Potassium 3.1 mmol/L (3.5-5.1)
[2020-08-13 07:20] LABS: Phosphorus 1.1 mg/dl (2.5-4.9)
[2020-08-13 07:40] VITALS: PULSE 88
[2020-08-13] MEDS: INSULIN GLARGINE SOLOSTAR 100 UNITS/ML 3 ML PEN SC SCH (08:10)
[2020-08-13] MEDS ORDERED: ONDANSETRON INJ 2 MG/ML 2 ML VIAL IV PRN (08:21)
[2020-08-13] MEDS ORDERED: METOPROLOL SUCC 50MG EXT REL TAB PO SCH (09:00)
--- NOTE | 2020-08-13 14:52 | Communication Note ---
Date of Service: August 13, 2020 Patient's discharge got delayed due to transforation issues. Patient got discharged prior to my encounter today.
== END 2020-08-13 08:37 | disposition short-term general hospital (02) | DRG 871 ==
LOC: ED 16:02 → 2W 20:59